=== PATIENT | female | born 1995 | race Two or more races ===

== ENCOUNTER 2024-04-23 00:53 | Emergency (ER) | payer MEDICAID, SELFPAY ==
[2024-04-23 00:53] VITALS: BMI 34.0
--- NOTE | 2024-04-23 01:20 | XR_ITS ---
Examination: Complete OB ultrasound, less than 14 weeks, transabdominal Date and time of exam: April 23, 2024 0248 hours INDICATIONS: Pelvic cramping beginning one week ago Technique: Obstetrical ultrasound images less than 14 weeks performed via transabdominal imaging Findings: A normal shaped single intrauterine gestation is present in the uterus. pole 4.45 cm corresponds to 11 weeks 2 days gestational age Cardiac motion 178 BPM Ultrasonographic survey of visible and placental structures unremarkable. Amniotic fluid volume appears appropriate for this estimated gestational age. Right ovary obscured by bowel gas Left ovary 2.9 x 1.6 x 2.1 cm arterial flow IMPRESSION: Viable intrauterine gestation 11 weeks 2 days.
[2024-04-23 01:22] VITALS: BP 121/77; PULSE 90; RESP 18; TEMP 36.8; O2SAT 98
[2024-04-23 01:54] LABS: Collection Type, Urine Clean Catch
[2024-04-23 02:01] LABS: Basophils % (Auto) 1 % (0-2.5); Eosinophils # (Auto) 0.1 Thou/mm3 (0.0-0.5); Eosinophils % (Auto) 1 % (0-10); Hematocrit 36.7 % (36.0-46.0); Hemoglobin 13.1 g/dL (12.0-16.0); Immature Granulocytes % (Auto) 0 % (0-0); Immature Granulocytes Auto 0.02 Thou/mm3 (0.00-0.00); Lymphocytes # (Auto) 2.4 Thou/mm3 (1.0-4.8); Lymphocytes % (Auto) 30 % (10-50); Mean Corpuscular HGB Conc 35.7 g/dl (31.0-37.0); Mean Corpuscular Hemoglobin 29.8 pg (25.0-35.0); Mean Corpuscular Volume 84 fL (80-100); Monocytes # (Auto) 0.7 Thou/mm3 (0.0-0.8); Monocytes % (Auto) 8 % (0-12); Neutrophils # (Auto) 4.9 Thou/mm3 (1.8-7.7); Neutrophils % (Auto) 61 % (37-80); Nucleated Red Blood Cell % 0 /100 WBC (0); Platelet Count 308 Thou/mm3 (140-440); RDW Standard Deviation 37.2 fL (36.4-46.3); Red Blood Count 4.39 Miln/mm3 (4.00-5.20)
[2024-04-23 02:09] LABS: Bacteria,Urine 1+; Bilirubin,Urine Negative (Negative); Blood,Urine 1+ (Negative); Clarity,Urine Clear (Clear/Hazy); Color,Urine Lt-Yellow (Lt Yel-Yel); Glucose, Urine Negative (Negative); Ketones,Urine Negative (Negative); Leukocyte Esterase,Urine Positive (Negative); Nitrite,Urine Negative (Negative); PH,Urine 6.5 (5.0-7.0); Protein,Urine Negative (Neg - Trace); RBC,Urine 3 /hpf (0-3); Specific Gravity,Urine 1.015 (1.001-1.035); Squamous Epithelial Cell,Urine 4 /hpf (0-5); Urobilinogen,Urine Negative mg/dL (0.0-1.0); WBC,Urine 4 /hpf (0-5)
[2024-04-23 02:24] LABS: Alanine Aminotransferase 15 U/L (10-49); Albumin, Serum 4.3 gm/dL (3.5-5.0); Albumin/Globulin Ratio 1.7 (1.2-2.2); Alkaline Phosphatase 47 U/L (46-116); Anion Gap 7 (7-16); Aspartate Amino Transferase 18 U/L (0-34); BUN/Creatinine Ratio 14 Ratio (12-20); Bilirubin,Total 0.3 mg/dL (0.3-1.2); Blood Urea Nitrogen 7 mg/dL (9-23); Calcium 10.1 mg/dL (8.3-10.6); Calcium (Corrected) 10.1 mg/dL (8.5-10.1); Carbon Dioxide 24.7 mMol/L (20.0-31.0); Chloride 105 mMol/L (98-107); Creatinine (Component) 0.5 mg/dL (0.6-1.3); Estimated Creatinine Clearance 165.1 mL/min (>60); Globulin 2.6 gm/dL (2.3-3.5); Glucose 93 mg/dL (74-106); Magnesium 1.8 mg/dL (1.6-2.6); Osmolality,Calculated 271 (275-295); Potassium 4.1 mMol/L (3.4-5.1); Sodium 137 mMol/L (136-145); Total Protein 6.9 gm/dL (5.7-8.2); eGFR > 60 See Note
[2024-04-23 02:31] LABS: Culture Indicated,Urine Yes
--- NOTE | 2024-04-23 03:07 | PD.EDPREG ---
ED OB Contraction Preg RMI/HPI General Chief complaint: Abdominal Pain Stated complaint: LOWER ABD PAIN Time Seen by Provider: 04/23/24 01:00 Arrival date/time: 04/23/24 00:53 RME / HPI RME / HPI Narrative: This section includes all my notes and documentations, including HPI, PE, and ED course. Jacob Bowers MD HPI: 28-year-old female here to be evaluated with pelvic pain for the past few hours. She is currently , in first trimester. Has been battling with nausea entire . No vaginal bleeding or spotting. No other complaints. ROS: All negative except as documented in HPI. Physical Exam: General: Alert and oriented. No acute distress when remaining still. Eyes: Conjunctivae and lids clear. ENT: No nasal congestion. Neck: Supple. Heart: RRR. Lungs: No respiratory distress. Good air movement. No rhonchi, wheezing, rales. Abdomen: Soft and nontender. Normal bowel sounds. No distension. No rebound or guarding. Back: No CVA tenderness. Skin: Warm and dry. Neuro: Alert and oriented X 3. I reviewed all diagnostic test results. My review of the OB ultrasound report is IUP. Blood tests and urine tests unremarkable. At this point, diagnoses include threatened AB. Recommended expectant management. Based on my best medical judgment, made decision no further evaluation or treatment indicated at this time. Patient understands and agrees to the discharge instructions customized and printed, see below. Discharge Instructions from Dr. Bowers: 1.? ? ? After evaluation, your baby is alive and doing well. 2.? ? ? Today, your GA is 11 2/7 weeks based on the ultrasound. 3.? ? ? Only time will determine whether you will have a successful or you will have a miscarriage.? If your symptoms stop, you can have a successful .? If your symptoms worsen with heavy vaginal bleeding, you may have a miscarriage.? If you have a miscarriage, unfortunately we won?t be able to save the baby because it?s too early.? Under 20 weeks, unfortunately we can?t help.?? 4.? ? ? See your OB doctor on 04/27/2024 for recheck as scheduled.? No sexual activity until cleared by a doctor taking care of you.?? Ask to review all test results and official radiology reports, to make sure you receive all necessary follow-ups and monitoring. 5.? ? ? Seek immediate medical care for severe bleeding (soaking more than 3 pads per hour), intolerable pain, or with any concerns.? Jacob Bowers MD Related Data Previous Rx's ?Medication ?Instructions ?Recorded ibuprofen 400 mg tablet 400 mg PO [id number] PRN PAIN ##30 12/15/12 ibuprofen 800 mg tablet 800 mg PO TID PRN pain #30 tabs 03/05/23 Allergies Allergy/AdvReac Type Severity Reaction Status Date / Time No Known Allergies Allergy Verified 03/05/23 15:50 Course Quality Measures none Orders Category Date Time Status US OB <= 14 weeks fetus Stat Exams 04/23/24 01:20 Taken Beta HCG,Quantitative Stat Lab 04/23/24 01:43 Completed CBC Stat Lab 04/23/24 01:43 Completed CMP [Comprehensive Metabolic Panel] Stat Lab 04/23/24 01:43 Completed Magnesium Stat Lab 04/23/24 01:43 Completed Rh Testing Only Stat Lab 04/23/24 01:43 Received UA, C/S IF [Urinalysis, C/S if Indicated] Stat Lab 04/23/24 01:20 Completed Urine Culture Stat Lab 04/23/24 01:20 Received Vital Signs Vital signs: Vital Signs Temperature 98.2 F 04/23/24 01:22 Pulse Rate 90 04/23/24 01:22 Respiratory Rate 18 04/23/24 01:22 Blood Pressure 121/77 04/23/24 01:22 Pulse Oximetry (%) 98 04/23/24 01:22 Oxygen Delivery Method Room Air 04/23/24 01:22 OB/Uterine Contractions Patient data External records reviewed:: None Clinical information provided by:: patient Social determinants that could affect healthcare access:: none Patient has the following chronic illnesses:: None How is presenting disease/condition affected by chronic disease/condition?: no chronic disease Evaluation data The following diagnostics were reviewed and interpreted by me:: lab results and radiology exam(s) Lab and/or radiology exams considered but not ordered:: None Interpretation Summary: Threatened miscarriage Medications / Prescriptions Medications or Prescriptions considered but not ordered:: None Medication administrations:: None Consultations Consultation(s) initiated? (list below): No Diagnosis OB Contractions Differential Diagnosis: other (Incomplete AB, complete AB, threatened AB, ectopic, IUP) Most likely diagnosis given after review of the tests above:: Threatened AB Admission Indicated Admission indicated?: not indicated Explain why admission is indicated or not indicated:: Admission criteria not met Admission Request Was there a request for admission?: No Disposition Plan Disposition Plan: Discharge Discharge Attestation Discharge Attestation: The patient and all family members were given an opportunity to ask questions and understood the discharge instructions. Discharge instructions specifically effects, indications for sooner follow up or return to the emergency department, and the expected course of current diagnosis. Patient condition: Stable Discharge Plan Plan Patient Disposition: HOME (Self Care) Prescriptions/Referrals Prescriptions/Med Rec: No Action ibuprofen 400 MG tablet 400 mg PO [id number] PRN (Reason: PAIN) Qty: 30 0RF ibuprofen 800 mg tablet 800 mg PO TID PRN (Reason: pain) Qty: 30 0RF Problem List Clinical Impression: Threatened miscarriage Patient/Caregiver Discharge Instructions Discharge Activity: activity as tolerated Education Materials: ED Possible Miscarriage ... Additional Instructions: Discharge Instructions from Dr. Bowers: 1.? ? ? After evaluation, your baby is alive and doing well. 2.? ? ? Today, your GA is 11 2/7 weeks based on the ultrasound. 3.? ? ? Only time will determine whether you will have a successful or you will have a miscarriage.? If your symptoms stop, you can have a successful .? If your symptoms worsen with heavy vaginal bleeding, you may have a miscarriage.? If you have a miscarriage, unfortunately we won?t be able to save the baby because it?s too early.? Under 20 weeks, unfortunately we can?t help.?? 4.? ? ? See your OB doctor on 04/27/2024 for recheck as scheduled.? No sexual activity until cleared by a doctor taking care of you.?? Ask to review all test results and official radiology reports, to make sure you receive all necessary follow-ups and monitoring. 5.? ? ? Seek immediate medical care for severe bleeding (soaking more than 3 pads per hour), intolerable pain, or with any concerns.? Print Language: [place] Stand Alone Forms: Alina Award Info., Patient Portal Info Letter
[2024-04-23 03:09] LABS: Beta HCG,Quantitative 121146 mIU/mL (<5.0)
[2024-04-23 03:14] VITALS: RESP 18
== END 2024-04-23 03:14 | disposition home or self-care (01) ==
LOC: SERX 04:21
PROVIDERS: Emergency Provider Emergency Medicine; PCP Family Medicine
DX: O20.0 Threatened abortion (principal); Z3A.00 Weeks of gestation of pregnancy not specified
CPT/HCPCS: 36415; 76801; 80053; 81001; 83735; 84702; 85025; 86901; 87086; 99284

== ENCOUNTER 2024-08-25 09:52 | Outpatient (AMB) | payer MEDICAID, SELFPAY ==
--- NOTE | 2024-08-25 09:56 | AMB.OBINITIA ---
Vital Signs 08/25/24 10:13 Height 1.55 m Height Method Stated Weight 90.378 kg Weight Measurement Method Standing Scale BMI 37.6 BP 126/80 Blood Pressure Source Automatic Cuff Blood Pressure Location Right Upper Arm Position Sitting Respiration 18 Pulse 95 Pulse Source Monitor Temp 97.5 F Temp Source Temporal Artery Scan Pulse Oximetry (%) 98 Oxygen Delivery Method Room Air Allergies/Home Meds Allergies & Medications Allergies No Known Allergies Allergy (Verified 08/25/24 10:03) Medication Reconciliation vits no.126-ferrous fum 28 mg iron-folic acid 800 mcg tablet (Classic ) tab PO 08/25/24 [History Confirmed 08/25/24] Intake Visit Data Collection New Patient or Established: Established Patient (seen at [facility] within 3 years) Reason for Visit:: transffer obi Do You Feel Safe at Home: Yes Authorities Contacted: N/A PCP or OBGYN visit in last 3 months: Yes Last menstrual period: 02/02/24 Pain Present Currently: Yes Smoking Status Smoking Status: 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 Questionnaires Covid-19 Vaccine Questionnaire Has patient been vacinated for Covid-19 Have you been vacinated for Covid-19: Yes PHQ-9 PHQ-2 Over the last 2 weeks, how often have you been bothered by any of the following problems? 1. Little interest or pleasure in doing things: not at all 2. Feeling down, depressed, or hopeless: not at all Total score: 0 Depression screen completed yes Social History Living Situation History Marital Status: Lives With: Spouse Housing: House Tobacco History Smoking Status: 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 Alcohol History Alcohol Intake: Never Domestic Abuse History Do You Feel Safe at Home: Yes Past Medical History Past Medical History Have you ever been diagnosed with any of the following: Cardiology Problems Congestive Heart Failure: No Respiratory Problems Chronic Obstructive Pulmonary Disease (COPD): No Genital/Urinary Problems Renal Disease: No Musculoskeletal Problems Fractures: Yes Endocrine Problems Diabetes Mellitus Type 1: No Diabetes Mellitus Type 2: No History of Present Illness HPI Narrative 28-year-old 3 para 0 for first visit to [facility] OB clinic. Patient has been followed with Dr. Baltazar over [facility]. Last period February 01, 2025. Estimated due date was November 08, 2024. Patient reports sure dates. She reports that all her labs and 1 are up-to-date. Declined to Tdap today. She says that she has not had any problems with this so far. Her last Pap 2020. Needs Pap patient needs a Pap . Reports movement. Denies any contractions. Reports good movement. No records are in the chart. OB Initial Visit OB Flowsheet OB Flowsheet Initial Weight: Not Recorded Date <del>?</del> EGA Weight Edema CTX Effacement BP Fundal ht Pres Dilation Effacement Station Visit Note Alb Glu FHR Mov 08/25/24 <del>?</del> 29w 2d 90.378 kg absent absent 126/80 29 28-year-old 3 para 0 for first visit at [facility] OB clinic. Patient was a transfer from [facility] no records. She states that her due date is November 08, 2024. Reports good movement. She reports that this has been complicated. And her labs were done and she last did her 1 hour Glucola that was normal per patient. She is taking vitamins denies any signs of labor. And reports good movement. Plan today is to schedule an MF anatomy scan [facility]. Continue prenatals and vitamin D and iron and discussed labor precautions and diet and weight with patient. Return in 3 weeks OB check 28-year-old 3 para 0 for first visit at [facility] OB clinic. Patient was a transfer from [facility] no records. She states that her due date is November 08, 2024. Reports good movement. She reports that this has been uncomplicated. And her labs were done and she last did her 1 hour Glucola that was normal per patient. She is taking vitamins denies any signs of labor. And reports good movement. Plan today is to schedule an MF anatomy scan [facility]. Continue prenatals and vitamin D and iron and discussed labor precautions and diet and weight with patient. Return in 3 weeks OB check 28-year-old 3 para 0 for first visit at [facility] OB clinic. Patient was a transfer from [facility] no records. She states that her due date is November 08, 2024. Reports good movement. She reports that this has been uncomplicated. And her labs were done and she last did her 1 hour Glucola that was normal per patient. She is taking vitamins denies any signs of labor. And reports good movement. Plan today is to schedule an MFM anatomy scan [facility]. Continue prenatals and vitamin D and iron and discussed labor precautions and diet and weight with patient. Return in 3 weeks OB check. decline TDAP 160 active Menstrual History Menstrual reliability: approximate (month known) Flow: normal Menstrual regularity: regular Monthly: Yes Age at menarche: 11 On control pills at conception: Yes Date of positive home test: 03/09/24 OB History : 3 Para: 0 Hx Total # of Abortions (Spontaneous & Elective): 2 Infection History & Risk Evaluation History of STDs: none HIV risk evaluation: low risk Hepatitis B risk evaluation: low risk Patient or partner has history of Genital Herpes: No Varicella/chicken pox status: immunized Genetic Screening & History Genetic Screening/Teratology Counseling - Includes patient, baby's father, or anyone in either family with: 1. Patient's age 35 years or older as of estimated date of delivery: No 2. Thalassemia (Uzbek, Romanian, Mediterranean, or Background); MCV less than 80: No 3. Neural Tube Defect (Meningomyelocele, Spina Bifida, or Anencephaly): No 4. Congenital Heart Defect: No 5. Down Syndrome: No 6. Jd-Sachs (Ashkenazi Buddhist, Cajun, Croatian Nigerian): No 7. Lois Disease (Ashkenazi Buddhist): No 8. Familial Dysautonomia (Ashkenazi Buddhist): No 9. Sickle Cell Disease or Trait (): No 10. Hemophilia or other blood disorders: No 11. Muscular Dystrophy: No 12. Cystic Fibrosis: No 13. [place]'s Chorea: No 14. Mental Retardation/Autism: No 15. Other inherited genetic or chromosomal disorder: No 16. Maternal Metabolic Disorder (EG,TYPE 1 Diabetes, PKU): No 17. Patient or baby's father had a child with defects not listed above: No 18. Recurrent loss or a stillbirth: No 19. Medications (including supplements, vitamins, herbs or otc drugs)/illicit/recreational drugs/alcohol since last menstrual period: No 20. Any other: No Infection History 1. Live with someone with TB or exposed to TB: No 2. Rash or viral illness since last menstrual period: No 3. Hepatitis B,C: No Other (see comments) Source: [employer] [place] [employer] Review of Systems Review of Systems Systems Reviewed: All systems reviewed, normal except as documented Exam Narrative Physical exam: FH:29, fht 160 General Limitations: no limitations General Appearance: alert, in no apparent distress, comfortable, cooperative, healthy appearing, well developed and well groomed Head Head exam: atraumatic, normocephalic and normal inspection Resp Respiratory exam: Present normal lung sounds bilaterally Card Cardiovascular exam: Present regular rate, normal rhythm and normal heart sounds Abdominal Abdominal exam: Present soft and normal bowel sounds Psych Psychiatric exam: Present normal affect and normal mood Assessment & Plan Diagnosis / Problem List (1) Encounter for supervision of normal in multigravida in third trimester: Status: Acute Plan Medical release from [facility] for OB records, schedule MFM anatomy scan, declined TDAP, ptl precaution, discuss diet and weight. 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
[2024-08-25 10:13] VITALS: BP 126/80; PULSE 95; RESP 18; TEMP 36.4; O2SAT 98; BMI 37.6
== END 2024-08-25 10:36 | disposition home or self-care (01) ==
LOC: HODSOBC 09:52
PROVIDERS: PCP Advanced Practice Midwife; Referring Provider Advanced Practice Midwife; Supervising Provider Advanced Practice Midwife; Visit Provider Advanced Practice Midwife
DX: Z34.83 Encounter for supervision of other normal pregnancy, third trimester (principal); Z3A.29 29 weeks gestation of pregnancy; Z28.21 Immunization not carried out because of patient refusal
CPT/HCPCS: 99204; G0463

== ENCOUNTER 2024-09-15 11:02 | Outpatient (AMB) | payer MEDICAID, SELFPAY ==
[2024-09-15 11:18] VITALS: BP 127/81; PULSE 92; RESP 18; TEMP 35.7; O2SAT 98; BMI 38.5
--- NOTE | 2024-09-15 11:18 | OBCLNT_ITS ---
Vital Signs 09/15/24 11:18 Height 1.55 m Height Method Stated Weight 92.646 kg Weight Measurement Method Standing Scale BMI 38.5 BP 127/81 Blood Pressure Source Automatic Cuff Blood Pressure Location Left Upper Arm Position Sitting Respiration 18 Pulse 92 Pulse Source Monitor Temp 96.2 F L Temp Source Oral Pulse Oximetry (%) 98 Oxygen Delivery Method Room Air Allergies/Home Meds Allergies & Medications Allergies No Known Allergies Allergy (Verified 09/15/24 11:19) Medication Reconciliation vits no.126-ferrous fum 28 mg iron-folic acid 800 mcg tablet (Classic ) tab PO 08/25/24 [History Confirmed 09/15/24] Intake Visit Data Collection New Patient or Established: Established Patient (seen at [facility] within 3 years) Reason for Visit:: OBC Seen by Clinical Staff ONLY (RN/MA): No Cable Cutter And Swager Required: No Do You Feel Safe at Home: Yes Authorities Contacted: N/A PCP or OBGYN visit in last 3 months: Yes Date of Last PCP or OBGYN visit: 08/25/24 Hx Now: Yes Are you currently on any form of Control: No Pain Present Currently: No Pain Scale Used: Long-Villanueva/Numerical Pain scale:: 0 Smoking Status Smoking Status: 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 Questionnaires Covid-19 Vaccine Questionnaire Has patient been vacinated for Covid-19 Have you been vacinated for Covid-19: Yes PHQ-9 PHQ-2 Over the last 2 weeks, how often have you been bothered by any of the following problems? 1. Little interest or pleasure in doing things: not at all 2. Feeling down, depressed, or hopeless: not at all Total score: 0 PHQ-9 3. Trouble falling or staying asleep, or sleeping too much: Not at all 4. Feeling tired or having little energy: Not at all 5. Poor appetite or overeating: Not at all 6. Feeling bad about yourself - or that you are a failure or have let yourself or your family down: Not at all 7. Trouble concentrating on things, such as reading the newspaper or watching television: Not at all 8. Moving or speaking so slowly that other people could have noticed? - Or the opposite - being so fidgety or restless that you have been moving around a lot more than usual: not at all 9. Thoughts that you would be better off or of hurting yourself in some way: Not at all Total score: 0 If you checked off any problems, how difficult have these problems made it for you to do your work, take care of things at home, or get along with other people?: not difficult at all Source: Developed by Drs. Rashaad Taylor, Angeles Frederick, Isreal Hoff and colleagues, with an educational mariama from [employer]. 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 Patient was a transfer from [facility] no records. She states that her due date is November 08, 2024. Reports good movement. She reports that this has been complicated. And her labs were done and she last did her 1 hour Glucola that was normal per patient. She is taking vitamins denies any signs of labor. And reports good movement. Plan today is to schedule an MFM anatomy scan [facility]. Continue prenatals and vitamin D and iron and discussed labor precautions and diet and weight with patient. Return in 3 weeks OB check 28-year-old 3 para 0 for first visit at [facility] OB clinic. Patient was a transfer from [facility] no records. She states that her due date is November 08, 2024. Reports good movement. She reports that this has been uncomplicated. And her labs were done and she last did her 1 hour Glucola that was normal per patient. She is taking vitamins denies any signs of labor. And reports good movement. Plan today is to schedule an MFM anatomy scan [facility]. Continue prenatals and vitamin D and iron and discussed labor precautions and diet and weight with patient. Return in 3 weeks OB check 28-year-old 3 para 0 for first visit at [facility] OB clinic. Patient was a transfer from [facility] no records. She states that her due date is November 08, 2024. Reports good movement. She reports that this has been uncomplicated. And her labs were done and she last did her 1 hour Glucola that was normal per patient. She is taking vitamins denies any signs of labor. And reports good movement. Plan today is to schedule an MFM anatomy scan [facility]. Continue prenatals and vitamin D and iron and discussed labor precautions and diet and weight with patient. Return in 3 weeks OB check. decline TDAP 09/15/24 -?-?-?-?-?-?-?-?-?-?-?-?- 33w 0d 92.646 kg 127/81 absent cephalic 33 135 active fetus active. no PTL complaints. no Leaking,or bleeding. fetus active. MFM pending discuss FKC BID, ptl precaution, increase fluid. f/u on mfm appointment. continue PNV, discuss diet and weight. rtc 2 week OBC KATHARINA Calculator Estimated Delivery Date Method Current WG Current Estimate 11/03/24 Ultrasound #1 33w 0d Other Estimates 11/08/24 LMP (Certain) 32w 2d Notes Visit Date: 09/15/24 Last Updated by: Ingris Vasquez CNM 28 yo , lmp 02/01/25. edc 11/08/24. transfer of car from Dr haynes. gtt: 115, hbsag:neg, HIV-,HC-, A1c: 5.0, gc/ct-,A+,abs- Office Procedures OB Clinic LOC & Office Proc's Nursing/Assessment Patient Status: Established Patient OB Clinic Nursing Assessment: Medication Reconciliation and Vital Signs OB Clinic Coordination of Care: Education Complex Pt/Fam, Consent,records obtained, informed consent, Lab and Imaging orders and Staff clarify orders Special Needs: Heart tones Established Patient Charge Established Patient Point Assignment: 100 Established Patient Point Charge: EP Level 3 (80-115) Assessment & Plan Diagnosis / Problem List (1) Encounter for supervision of normal in multigravida in third trimester: Status: Acute Plan f/u on mfm referral. discuss diet and exercise, discuss PTL precaution, fkc bid, hydrate. rtc 2 week Additional Plan Follow Up: 2 Weeks (obc)
== END 2024-09-15 11:34 | disposition home or self-care (01) ==
LOC: HODSOBC 11:02
PROVIDERS: PCP Advanced Practice Midwife; Referring Provider Advanced Practice Midwife; Supervising Provider Advanced Practice Midwife; Visit Provider Advanced Practice Midwife
DX: Z34.83 Encounter for supervision of other normal pregnancy, third trimester (principal); Z3A.33 33 weeks gestation of pregnancy
CPT/HCPCS: 99213; G0463

== ENCOUNTER 2024-09-19 01:15 | Observation (INO) | payer MEDICAID, SELFPAY ==
[2024-09-19] VITALS (9 sets, daily range): BP systolic 128; BP diastolic 81; PULSE 81–102; RESP 16–99; TEMP 36.9; O2SAT 98–100; BMI 37.6
== END 2024-09-19 02:18 | disposition home or self-care (01) ==
PROVIDERS: Admitting Provider Specialist; Visit Provider Specialist
DX: O9A.213 Injury, poisoning and certain other consequences of external causes complicating pregnancy, third trimester (principal); S39.91XA Unspecified injury of abdomen, initial encounter; Z3A.32 32 weeks gestation of pregnancy; W21.09XA Struck by other hit or thrown ball, initial encounter
CPT/HCPCS: 59025; 59899; G0378

== ENCOUNTER 2024-09-29 10:03 | Outpatient (AMB) | payer MEDICAID, SELFPAY ==
--- NOTE | 2024-09-29 10:20 | OBCLNT_ITS ---
Vital Signs 09/29/24 10:21 Height 1.57 m Height Method Stated Weight 92.533 kg Weight Measurement Method Standing Scale BMI 37.3 BP 129/84 Blood Pressure Source Automatic Cuff Blood Pressure Location Right Upper Arm Position Sitting Respiration 17 Pulse 82 Pulse Source Monitor Temp 97.6 F Temp Source Temporal Artery Scan Pulse Oximetry (%) 97 Oxygen Delivery Method Room Air Allergies/Home Meds Allergies & Medications Allergies No Known Allergies Allergy (Verified 09/29/24 10:22) Medication Reconciliation vits no.126-ferrous fum 28 mg iron-folic acid 800 mcg tablet (Classic ) 1 tab PO QDAY 08/25/24 [History Confirmed 09/29/24] cholecalciferol (vitamin D3) 50 mcg (2,000 unit) tablet 50 mcg PO QDAY 09/19/24 [History Confirmed 09/29/24] ferrous sulfate 325 mg (65 mg iron) tablet (FeroSul) 325 mg PO QDAY 09/19/24 [History Confirmed 09/29/24] Intake Visit Data Collection New Patient or Established: Established Patient (seen at [facility] within 3 years) Reason for Visit:: OBC Seen by Clinical Staff ONLY (RN/MA): No 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 1. Little interest or pleasure in doing things: not at all 2. Feeling down, depressed, or hopeless: not at all Total score: 0 PHQ-9 3. Trouble falling or staying asleep, or sleeping too much: Not at all 4. Feeling tired or having little energy: Not at all 5. Poor appetite or overeating: Not at all 6. Feeling bad about yourself - or that you are a failure or have let yourself or your family down: Not at all 7. Trouble concentrating on things, such as reading the newspaper or watching television: Not at all 8. Moving or speaking so slowly that other people could have noticed? - Or the opposite - being so fidgety or restless that you have been moving around a lot more than usual: not at all 9. Thoughts that you would be better off or of hurting yourself in some way: Not at all Total score: 0 If you checked off any problems, how difficult have these problems made it for you to do your work, take care of things at home, or get along with other people?: not difficult at all Source: Developed by Drs. Rashaad Taylor, Angeles Frederick, Isreal Hoff and colleagues, with an educational mariama from [employer]. 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 OB clinic. Patient was a transfer from [facility] no records. She states that her due date is November 08, 2024. Reports good movement. She reports that this has been complicated. And her labs were done and she last did her 1 hour Glucola that was normal per patient. She is taking vitamins denies any signs of labor. And reports good movement. Plan today is to schedule an M anatomy scan [facility]. Continue prenatals and vitamin D and iron and discussed labor precautions and diet and weight with patient. Return in 3 weeks OB check 28-year-old 3 para 0 for first visit at [facility] OB clinic. Patient was a transfer from [facility] no records. She states that her due date is November 08, 2024. Reports good movement. She reports that this has been uncomplicated. And her labs were done and she last did her 1 hour Glucola that was normal per patient. She is taking vitamins denies any signs of labor. And reports good movement. Plan today is to schedule an MFM anatomy scan [facility]. Continue prenatals and vitamin D and iron and discussed labor precautions and diet and weight with patient. Return in 3 weeks OB check 28-year-old 3 para 0 for first visit at [facility] OB clinic. Patient was a transfer from [facility] no records. She states that her due date is November 08, 2024. Reports good movement. She reports that this has been uncomplicated. And her labs were done and she last did her 1 hour Glucola that was normal per patient. She is taking vitamins denies any signs of labor. And reports good movement. Plan today is to schedule an MFM anatomy scan [facility]. Continue prenatals and vitamin D and iron and discussed labor precautions and diet and weight with patient. Return in 3 weeks OB check. decline TDAP 09/15/24 -?-?-?-?-?-?-?-?-?-?-?-?- 32w 2d 92.646 kg 127/81 absent cephalic 33 135 active fetus active. no PTL complaints. no Leaking,or bleeding. fetus active. MFM pending discuss FKC BID, ptl precaution, increase fluid. f/u on mfm appointment. continue PNV, discuss diet and weight. rtc 2 week OBC 09/29/24 -?-?-?-?-?-?-?-?-?-?-?-?- 34w 2d 92.533 kg 129/84 absent cephalic 34 134 active fetus active, denies VB,LOF and PTL complaints, fetus active per pt PTL precaution reviewed, discuss FKC. continue PNV, hydrate, f/u mfm KATHARINA Calculator Estimated Delivery Date Method Current WG Current Estimate 11/08/24 LMP (Certain) 34w 2d Other Estimates 11/03/24 Ultrasound #1 35w 0d Notes Visit Date: 09/29/24 Last Updated by: Ingris Vaqsuez CNM 1 hr gtt wnl Visit Date: 09/15/24 Last Updated by: Ingris Vasquez CNM 28 yo , lmp 02/01/25. edc 11/08/24. transfer of car from Dr haynes. gtt: 115, hbsag:neg, HIV-,HC-, A1c: 5.0, gc/ct-,A+,abs- Office Procedures OB Clinic LOC & Office Proc's Nursing/Assessment Patient Status: Established Patient OB Clinic Nursing Assessment: Medication Reconciliation, Update PMH in EMR and Vital Signs OB Clinic Coordination of Care: Complex Care and Chronic Disease 1-5, Consent,records obtained, informed consent, Education Simp Pt/Fam, Lab and Imaging orders and Staff clarify orders Special Needs: Heart tones Established Patient Charge Established Patient Point Assignment: 130 Established Patient Point Charge: EP Level 4 (120-155) Assessment & Plan Diagnosis / Problem List (1) Encounter for supervision of normal in multigravida in third trimester: Status: Acute Plan discuss labor precaution, discuss fkc bid. GBS NV, hydrate. continue PNV. rtc 1 week OBC Additional Plan Follow Up: 2 Weeks (obc)
[2024-09-29 10:21] VITALS: BP 129/84; PULSE 82; RESP 17; TEMP 36.4; O2SAT 97; BMI 37.3
== END 2024-09-29 11:08 | disposition home or self-care (01) ==
LOC: HODSOBC 10:03
PROVIDERS: PCP Advanced Practice Midwife; Referring Provider Advanced Practice Midwife; Supervising Provider Advanced Practice Midwife; Visit Provider Advanced Practice Midwife
DX: Z34.83 Encounter for supervision of other normal pregnancy, third trimester (principal); Z3A.34 34 weeks gestation of pregnancy
CPT/HCPCS: 99214; G0463

== ENCOUNTER 2024-10-13 08:37 | Outpatient (AMB) | payer MEDICAID, SELFPAY ==
[2024-10-13 09:10] VITALS: BP 119/81; PULSE 80; RESP 17; TEMP 36.4; O2SAT 98; BMI 39.0
--- NOTE | 2024-10-13 09:10 | OBCLNT_ITS ---
Vital Signs 10/13/24 09:10 Height 1.57 m Height Method Stated Weight 96.275 kg Weight Measurement Method Standing Scale BMI 39.0 BP 119/81 Blood Pressure Source Automatic Cuff Blood Pressure Location Right Upper Arm Position Sitting Respiration 17 Pulse 80 Pulse Source Monitor Temp 97.5 F Temp Source Temporal Artery Scan Pulse Oximetry (%) 98 Oxygen Delivery Method Room Air Allergies/Home Meds Allergies & Medications Allergies No Known Allergies Allergy (Verified 10/13/24 09:11) Medication Reconciliation vits no.126-ferrous fum 28 mg iron-folic acid 800 mcg tablet (Classic ) 1 tab PO QDAY 08/25/24 [History Confirmed 10/13/24] cholecalciferol (vitamin D3) 50 mcg (2,000 unit) tablet 50 mcg PO QDAY 09/19/24 [History Confirmed 10/13/24] ferrous sulfate 325 mg (65 mg iron) tablet (FeroSul) 325 mg PO QDAY 09/19/24 [History Confirmed 10/13/24] Intake Visit Data Collection New Patient or Established: Established Patient (seen at [facility] within 3 years) Reason for Visit:: OBC Seen by Clinical Staff ONLY (RN/MA): No 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 1. Little interest or pleasure in doing things: not at all 2. Feeling down, depressed, or hopeless: not at all Total score: 0 PHQ-9 3. Trouble falling or staying asleep, or sleeping too much: Not at all 4. Feeling tired or having little energy: Not at all 5. Poor appetite or overeating: Not at all 6. Feeling bad about yourself - or that you are a failure or have let yourself or your family down: Not at all 7. Trouble concentrating on things, such as reading the newspaper or watching television: Not at all 8. Moving or speaking so slowly that other people could have noticed? - Or the opposite - being so fidgety or restless that you have been moving around a lot more than usual: not at all 9. Thoughts that you would be better off or of hurting yourself in some way: Not at all Total score: 0 If you checked off any problems, how difficult have these problems made it for you to do your work, take care of things at home, or get along with other people?: not difficult at all Source: Developed by Drs. Rashaad Taylor, Angeles Frederick, Isreal Hoff and colleagues, with an educational mariama from [employer]. 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 Patient was a transfer from [facility] no records. She states that her due date is November 08, 2024. Reports good movement. She reports that this has been complicated. And her labs were done and she last did her 1 hour Glucola that was normal per patient. She is taking vitamins denies any signs of labor. And reports good movement. Plan today is to schedule an M anatomy scan [facility]. Continue prenatals and vitamin D and iron and discussed labor precautions and diet and weight with patient. Return in 3 weeks OB check 28-year-old 3 para 0 for first visit at [facility] OB clinic. Patient was a transfer from [facility] no records. She states that her due date is November 08, 2024. Reports good movement. She reports that this has been uncomplicated. And her labs were done and she last did her 1 hour Glucola that was normal per patient. She is taking vitamins denies any signs of labor. And reports good movement. Plan today is to schedule an MFM anatomy scan [facility]. Continue prenatals and vitamin D and iron and discussed labor precautions and diet and weight with patient. Return in 3 weeks OB check 28-year-old 3 para 0 for first visit at [facility] OB clinic. Patient was a transfer from [facility] no records. She states that her due date is November 08, 2024. Reports good movement. She reports that this has been uncomplicated. And her labs were done and she last did her 1 hour Glucola that was normal per patient. She is taking vitamins denies any signs of labor. And reports good movement. Plan today is to schedule an MFM anatomy scan [facility]. Continue prenatals and vitamin D and iron and discussed labor precautions and diet and weight with patient. Return in 3 weeks OB check. decline TDAP 09/15/24 -?-?-?-?-?-?-?-?-?-?-?-?- 32w 2d 92.646 kg 127/81 absent cephalic 33 135 active fetus active. no PTL complaints. no Leaking,or bleeding. fetus active. MFM pending discuss FKC BID, ptl precaution, increase fluid. f/u on mfm appointment. continue PNV, discuss diet and weight. rtc 2 week OBC 09/29/24 -?-?-?-?-?-?-?-?-?-?-?-?- 34w 2d 92.533 kg 129/84 absent cephalic 34 134 active fetus active, denies VB,LOF and PTL complaints, fetus active per pt PTL precaution reviewed, discuss FKC. continue PNV, hydrate, f/u mfm 10/06/2/5 10/13/24 -?-?-?-?-?-?-?-?-?-?-?-?- 36w 2d 96.275 kg 119/81 occasional cephalic 35 145 active fetus active, pressure and cramps, no leaking or bleeding GBS today, discuss labor precaution, fkc bid, discuss ER precaution,and PIH precaution. hydrate, rtc 1 week OBC KATHARINA Calculator Estimated Delivery Date Method Current WG Current Estimate 11/08/24 LMP (Certain) 36w 2d Other Estimates 11/03/24 Ultrasound #1 37w 0d Notes Visit Date: 09/29/24 Last Updated by: Ingris Vasquez CNM 1 hr gtt wnl Visit Date: 09/15/24 Last Updated by: Ingris Vasquez CNM 28 yo , lmp 02/01/25. edc 11/08/24. transfer of car from Dr haynes. gtt: 115, hbsag:neg, HIV-,HC-, A1c: 5.0, gc/ct-,A+,abs- Office Procedures OB Clinic LOC & Office Proc's Nursing/Assessment Patient Status: Established Patient OB Clinic Nursing Assessment: Medication Reconciliation, Update PMH in EMR and Vital Signs OB Clinic Coordination of Care: Complex Care and Chronic Disease 1-5, Consent,records obtained, informed consent, Education Simp Pt/Fam and Staff clarify orders Special Needs: Heart tones Established Patient Charge Established Patient Point Assignment: 115 Established Patient Point Charge: EP Level 3 (80-115) Assessment & Plan Diagnosis / Problem List (1) Encounter for supervision of normal in multigravida in third trimester: Status: Acute Plan GBS today, discuss FKC bid, discuss labor precaution and ER precaution, hydrate, comfort measure for swelling, PIH precaution rtc obc 1 week Additional Plan Follow Up: 1 Week (obc)
== END 2024-10-13 09:40 | disposition home or self-care (01) ==
LOC: HODSOBC 08:37
PROVIDERS: PCP Advanced Practice Midwife; Referring Provider Advanced Practice Midwife; Supervising Provider Advanced Practice Midwife; Visit Provider Advanced Practice Midwife
DX: Z34.83 Encounter for supervision of other normal pregnancy, third trimester (principal); Z3A.36 36 weeks gestation of pregnancy; Z36.85 Encounter for antenatal screening for Streptococcus B
CPT/HCPCS: 99213; G0463

== ENCOUNTER 2024-10-17 02:18 | Observation (INO) | payer MEDICAID, SELFPAY ==
[2024-10-17] VITALS (10 sets, daily range): BP systolic 129; BP diastolic 86; PULSE 83–95; RESP 17–99; TEMP 36.8; O2SAT 98–100; BMI 38.8
--- NOTE | 2024-10-17 10:35 | ESPR_ITS ---
Documentation for date of: 10/17/24 OB Labor Progress Note Pelvic Exam Dilation (cm): 0 station: -3 Amniotic membrane status: Intact Contractions Monitor mode: External Contraction frequency: 1-3 Contraction intensity: Mild Assessment and Plan Comments: Lamont a 29yo with SIUP at 36+wk presenting to L&D for lack of movement. She notes no ctx, no lof, no vaginal bleeding. Current : Transfer of care from Dr. Reece to GUILHERME Vasquez in [address] [place] [address] ROS negative other than what was described above. Vitals wnl, afebrile General: well developed, well nourished, no acute distress, conversant Cardiac: normal heart rate Lungs: breathing without distress Abdomen: soft, gravid, non-tender, no rebound or guarding NST: Reactive with 15x15 accels, no decels, mod autumn Assessment: Hortencia is a 29yo with SIUP at 36+wk with decreased mo vement prior to presentation. Vitals wnl, benign exam. Reassuring status based on NST. Patient began to feel robust movement in triage as well. Plan: -Patient was provided reassurance regarding findings -Continue routine follow up with GUILHERME Vasquez -Return precautions discussed to include [facility] Dr. Garcia
== END 2024-10-17 03:15 | disposition home or self-care (01) ==
PROVIDERS: Admitting Provider Obstetrics & Gynecology; Visit Provider Obstetrics & Gynecology
DX: O36.8130 Decreased fetal movements, third trimester, not applicable or unspecified (principal); Z3A.36 36 weeks gestation of pregnancy
CPT/HCPCS: 59025; 59899

== ENCOUNTER 2024-10-20 11:29 | Outpatient (AMB) | payer MEDICAID, SELFPAY ==
[2024-10-20 11:40] VITALS: BP 123/85; PULSE 75; RESP 18; TEMP 36.3; O2SAT 98
--- NOTE | 2024-10-20 11:40 | OBCLNT_ITS ---
Vital Signs 10/20/24 11:40 Weight 95.368 kg Weight Measurement Method Standing Scale BP 123/85 H Blood Pressure Source Automatic Cuff Blood Pressure Location Right Upper Arm Position Sitting Respiration 18 Pulse 75 Pulse Source Monitor Temp 97.3 F Temp Source Temporal Artery Scan Pulse Oximetry (%) 98 Oxygen Delivery Method Room Air Allergies/Home Meds Allergies & Medications Allergies No Known Allergies Allergy (Verified 10/20/24 11:41) Medication Reconciliation vits no.126-ferrous fum 28 mg iron-folic acid 800 mcg tablet (Classic ) 1 tab PO QDAY 08/25/24 [History Confirmed 10/20/24] cholecalciferol (vitamin D3) 50 mcg (2,000 unit) tablet 50 mcg PO QDAY 09/19/24 [History Confirmed 10/20/24] ferrous sulfate 325 mg (65 mg iron) tablet (FeroSul) 325 mg PO QDAY 09/19/24 [History Confirmed 10/20/24] Intake Visit Data Collection New Patient or Established: Established Patient (seen at [facility] within 3 years) Reason for Visit:: OBC Seen by Clinical Staff ONLY (RN/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 1. Little interest or pleasure in doing things: not at all 2. Feeling down, depressed, or hopeless: not at all Total score: 0 PHQ-9 3. Trouble falling or staying asleep, or sleeping too much: Not at all 4. Feeling tired or having little energy: Not at all 5. Poor appetite or overeating: Not at all 6. Feeling bad about yourself - or that you are a failure or have let yourself or your family down: Not at all 7. Trouble concentrating on things, such as reading the newspaper or watching television: Not at all 8. Moving or speaking so slowly that other people could have noticed? - Or the opposite - being so fidgety or restless that you have been moving around a lot more than usual: not at all 9. Thoughts that you would be better off or of hurting yourself in some way: Not at all Total score: 0 If you checked off any problems, how difficult have these problems made it for you to do your work, take care of things at home, or get along with other people?: not difficult at all Source: Developed by Drs. Rashaad Taylor, Angeles Frederick, Isreal Hoff and colleagues, with an educational mariama from [employer]. 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 Patient reports feeling cramps, like period cramps which were identified as [place] contractions. No leaking, no bleeding reported. Reports good movement. Denies BRICEÑO, VC, and epigastric pain. - Hortencia Weaver is a 29-year-old at 37 weeks and 2 days gestation presenting for routine care. - Estimated due date: 11/08/2024 - Recently seen at the hospital for a ruled-out labor check and discharged home - Reports experiencing cramps similar to period cramps - Informed these are likely [place] contractions - Denies leaking fluid or bleeding - Reports normal movement - Transferred care to Ingris Morejon in her 3rd trimester - Taking vitamins as prescribed Care OB Visit Log OB Flowsheet Initial Weight: Not Recorded Date -?-?-?-?-?-?-?-?-?-?-?-?- EGA Weight BP Alb Glu CTX Pres Fundal ht FHR Mov Dilation Station Effacement Hx Notes Visit Note 08/25/24 -?-?-?-?-?-?-?-?-?-?-?-?- 29w 2d 90.378 kg 126/80 absent 29 160 ac tive 28-year-old 3 para 0 for first visit at [facility] OB clinic. Patient was a transfer from [facility] no records. She states that her due date is November 08, 2024. Reports good movement. She reports that this has been complicated. And her labs were done and she last did her 1 hour Glucola that was normal per patient. She is taking vitamins denies any signs of labor. And reports good movement. Plan today is to schedule an [facility] anatomy scan [facility]. Continue prenatals and vitamin D and iron and discussed labor precautions and diet and weight with patient. Return in 3 weeks OB check 28-year-old 3 para 0 for first visit at [facility] OB clinic. Patient was a transfer from [facility] no records. She states that her due date is November 08, 2024. Reports good movement. She reports that this has been uncomplicated. And her labs were done and she last did her 1 hour Glucola that was normal per patient. She is taking vitamins denies any signs of labor. And reports good movement. Plan today is to schedule an [facility] anatomy scan [facility]. Continue prenatals and vitamin D and iron and discussed labor precautions and diet and weight with patient. Return in 3 weeks OB check 28-year-old 3 para 0 for first visit at [facility] OB clinic. Patient was a transfer from [facility] no records. She states that her due date is November 08, 2024. Reports good movement. She reports that this has been uncomplicated. And her labs were done and she last did her 1 hour Glucola that was normal per patient. She is taking vitamins denies any signs of labor. And reports good movement. Plan today is to schedule an M anatomy scan [facility]. Continue prenatals and vitamin D and iron and discussed labor precautions and diet and weight with patient. Return in 3 weeks OB check. decline TDAP 09/15/24 -?-?-?-?-?-?-?-?-?-?-?-?- 32w 2d 92.646 kg 127/81 absent cephalic 33 135 active fetus active. no PTL complaints. no Leaking,or bleeding. fetus active. MFM pending discuss FKC BID, ptl precaution, increase fluid. f/u on mfm appointment. continue PNV, discuss diet and weight. rtc 2 week OBC 09/29/24 -?-?-?-?-?-?-?-?-?-?-?-?- 34w 2d 92.533 kg 129/84 absent cephalic 34 134 active fetus active, denies VB,LOF and PTL complaints, fetus active per pt PTL precaution reviewed, discuss FKC. continue PNV, hydrate, f/u mfm 10/06//10/13/24 -?-?-?-?-?-?-?-?-?-?-?-?- 36w 2d 96.275 kg 119/81 occasional cephalic 35 145 active fetus active, pressure and cramps, no leaking or bleeding GBS today, discuss labor precaution, fkc bid, discuss ER precaution,and PIH precaution. hydrate, rtc 1 week OBC 10/20/24 -?-?-?-?-?-?-?-?-?-?-?-?- 37w 2d 95.368 kg 123/85 occasional cephalic 40 140 active Reports period- like cramps ([place]), no leaking or bleeding, good FM. Recently evaluated at hospital and discharged. vitamins continued Return visit with Dr. Ley next week, Ingris VANEGAS on November 03. Encourage daily 15?20 min walks, use exercise ball, monitor for labor. Await spontaneous labor; induce after 40 weeks if needed. KATHARINA Calculator Estimated Delivery Date Method Current WG Current Estimate 11/08/24 LMP (Certain) 37w 4d Other Estimates 11/03/24 Ultrasound #1 38w 2d Notes Visit Date: 09/29/24 Last Updated by: Ingris Vasquez CNM 1 hr gtt wnl Visit Date: 09/15/24 Last Updated by: Ingris Vasquez CNM 28 yo , lmp 02/01/25. edc 11/08/24. transfer of car from Dr haynes. gtt: 115, hbsag:neg, HIV-,HC-, A1c: 5.0, gc/ct-,A+,abs- Exam General General Appearance: alert, in no apparent distress and healthy appearing Head Head exam: atraumatic Neck Neck exam: Present normal inspection and trachea midline Chest Chest inspection: Present normal inspection and symmetric chest wall rise External exam: Present normal external exam; Absent tenderness Neuro Neurological exam: Present oriented X3 Psych Psychiatric exam: Present normal affect and normal mood Office Procedures OB Clinic LOC & Office Proc's Nursing/Assessment Patient Status: Established Patient OB Clinic Nursing Assessment: Medication Reconciliation, Update PMH in EMR and Vital Signs OB Clinic Coordination of Care: Education Complex Pt/Fam, Consent,records obtained, informed consent, Lab and Imaging orders and Staff clarify orders Special Needs: Heart tones Established Patient Charge Established Patient Point Assignment: 110 Established Patient Point Charge: EP Level 3 (80-115) Assessment & Plan Diagnosis / Problem List (1) size inconsistent with dates: Status: Acute (2) Encounter for supervision of normal in multigravida in third trim kraig: Status: Acute Plan Problem List - , 37 weeks and 2 days gestation - [place] contractions Assessment at 37 weeks and 2 days gestation with KATHARINA 11/08/2024 presenting for routine care. Patient reports experiencing [place] contractions described as period-like cramps. movement is reported as normal. No leaking or bleeding noted. Recent hospital visit for ruled-out labor check resulted in discharge home. Group B Streptococcus (GBS) screening was performed recently. heart rate auscultated at 163 bpm, which is within normal range. Plan - Schedule next appointment with Dr. Ley for next week - Schedule subsequent appointment with Ingris Morejon on November 03 - Continue vitamins - Recommend 15-20 minute daily walks - Suggest using an exercise ball for bouncing - Monitor for onset of labor; if any issues arise, patient to go to hospital - Await spontaneous labor onset until due date (40 weeks) - If labor does not begin spontaneously, schedule induction after due date 1. Progress Reviewed gestational age, growth, and heart rate. Planned frequent visits (every 2 weeks until 36 weeks, then weekly). 2. Instructed patient to monitor movements and report decreases immediately. 3. Testing Counseled on routine third-trimester labs per guidelines. Discussed potential need for ultrasound or monitoring based on risk factors. 4. Preeclampsia Precaution Educated on preeclampsia signs: severe headache, vision changes, right upper quadrant pain, sudden swelling. Advised urgent reporting of symptoms and discussed blood pressure monitoring if high risk. 5. Labor Precautions Reviewed labor signs: regular contractions, pelvic pressure, back pain, bleeding, or fluid leakage. Instructed to seek immediate care for these symptoms. 6. Lifestyle and Delivery Preparation Reinforced vitamins, nutrition, and safe activity. Discussed plan, pain management, and . Advised on labor preparation (e.g., hospital bag) and expectations. 7. Psychosocial Support Assessed emotional well-being and offered resources for mental health or parenting support.
== END 2024-10-20 11:53 | disposition home or self-care (01) ==
LOC: HODSOBC 11:29
PROVIDERS: PCP Advanced Practice Midwife; Referring Provider Advanced Practice Midwife; Supervising Provider Obstetrics & Gynecology; Visit Provider Obstetrics & Gynecology
DX: O09.893 Supervision of other high risk pregnancies, third trimester (principal); O26.843 Uterine size-date discrepancy, third trimester; O47.1 False labor at or after 37 completed weeks of gestation; Z3A.37 37 weeks gestation of pregnancy
CPT/HCPCS: 99213; G0463

== ENCOUNTER 2024-10-26 09:16 | Outpatient (AMB) | payer MEDICAID, SELFPAY ==
--- NOTE | 2024-10-26 09:22 | AMB.OBVISIT ---
Vital Signs 10/26/24 09:23 Height 1.57 m Height Method Stated Weight 96.615 kg Weight Measurement Method Standing Scale BMI 39.2 BP 134/87 H Blood Pressure Source Automatic Cuff Blood Pressure Location Right Upper Arm Position Sitting Respiration 17 Pulse 78 Pulse Source Monitor Temp 97.6 F Temp Source Temporal Artery Scan Pulse Oximetry (%) 98 Oxygen Delivery Method Room Air Allergies/Home Meds Allergies & Medications Allergies No Known Allergies Allergy (Verified 10/26/24 09:24) Medication Reconciliation vits no.126-ferrous fum 28 mg iron-folic acid 800 mcg tablet (Classic ) 1 tab PO QDAY 08/25/24 [History Confirmed 10/26/24] Intake Visit Data Collection New Patient or Established: Established Patient (seen at [facility] within 3 years) Reason for Visit:: OBC Seen by Clinical Staff ONLY (RN/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 1. Little interest or pleasure in doing things: not at all 2. Feeling down, depressed, or hopeless: not at all Total score: 0 PHQ-9 3. Trouble falling or staying asleep, or sleeping too much: Not at all 4. Feeling tired or having little energy: Not at all 5. Poor appetite or overeating: Not at all 6. Feeling bad about yourself - or that you are a failure or have let yourself or your family down: Not at all 7. Trouble concentrating on things, such as reading the newspaper or watching television: Not at all 8. Moving or speaking so slowly that other people could have noticed? - Or the opposite - being so fidgety or restless that you have been moving around a lot more than usual: not at all 9. Thoughts that you would be better off or of hurting yourself in some way: Not at all Total score: 0 If you checked off any problems, how difficult have these problems made it for you to do your work, take care of things at home, or get along with other people?: not difficult at all Source: Developed by Drs. Rashaad Taylor, Angeles Frederick, Isreal Hoff and colleagues, with an educational mariama from [employer]. 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 No contractions, LOF, VB and reports good FM. Denies BRICEÑO, VC, and epigastric pain. - Hortencia Weaver presents for a visit at 38 weeks and 1 day gestation, . - Patient reports feeling good overall. - Denies experiencing contractions. - Confirms adherence to previously recommended activities: - Walking - Using exercise ball - Reports consistent movement. - No specific complaints or concerns mentioned. Care OB Visit Log OB Flowsheet Initial Weight: Not Recorded Date <del>?</del> EGA Weight BP Alb Glu CTX Pres Fundal ht FHR Mov Dilation Station Effacement Hx Notes Visit Note 08/25/24 <del>?</del> 29w 2d 90.378 kg 126/80 absent 29 160 active 28-year-old 3 para 0 for first visit at [facility] OB clinic. Patient was a transfer from [facility] no records. She states that her due date is November 08, 2024. Reports good movement. She reports that this has been complicated. And her labs were done and she last did her 1 hour Glucola that was normal per patient. She is taking vitamins denies any signs of labor. And reports good movement. Plan today is to schedule an M anatomy scan [facility]. Continue prenatals and vitamin D and iron and discussed labor precautions and diet and weight with patient. Return in 3 weeks OB check 28-year-old 3 para 0 for first visit at [facility] OB clinic. Patient was a transfer from [facility] no records. She states that her due date is November 08, 2024. Reports good movement. She reports that this has been uncomplicated. And her labs were done and she last did her 1 hour Glucola that was normal per patient. She is taking vitamins denies any signs of labor. And reports good movement. Plan today is to schedule an MFM anatomy scan [facility]. Continue prenatals and vitamin D and iron and discussed labor precautions and diet and weight with patient. Return in 3 weeks OB check 28-year-old 3 para 0 for first visit at [facility] OB clinic. Patient was a transfer from [facility] no records. She states that her due date is November 08, 2024. Reports good movement. She reports that this has been uncomplicated. And her labs were done and she last did her 1 hour Glucola that was normal per patient. She is taking vitamins denies any signs of labor. And reports good movement. Plan today is to schedule an MFM anatomy scan [facility]. Continue prenatals and vitamin D and iron and discussed labor precautions and diet and weight with patient. Return in 3 weeks OB check. decline TDAP 09/15/24 <del>?</del> 32w 2d 92.646 kg 127/81 absent cephalic 33 135 active fetus active. no PTL complaints. no Leaking,or bleeding. fetus active. MFM pending discuss FKC BID, ptl precaution, increase fluid. f/u on mfm appointment. continue PNV, discuss diet and weight. rtc 2 week OBC 09/29/24 <del>?</del> 34w 2d 92.533 kg 129/84 absent cephalic 34 134 active fetus active, denies VB,LOF and PTL complaints, fetus active per pt PTL precaution reviewed, discuss FKC. continue PNV, hydrate, f/u mfm 10/06/2/5 10/13/24 <del>?</del> 36w 2d 96.275 kg 119/81 occasional cephalic 35 145 active fetus active, pressure and cramps, no leaking or bleeding GBS today, discuss labor precaution, fkc bid, discuss ER precaution,and PIH precaution. hydrate, rtc 1 week OBC 10/20/24 <del>?</del> 37w 2d 95.368 kg 123/85 occasional cephalic 40 140 active Reports period-like cramps ([place]), no leaking or bleeding, good FM. Recently evaluated at hospital and discharged. vitamins continued Return visit with Dr. Ley next week, Ingris VANEGAS on November 03. Encourage daily 15?20 min walks, use exercise ball, monitor for labor. Await spontaneous labor; induce after 40 weeks if needed. 10/26/24 <del>?</del> 38w 1d 96.615 kg 134/87 absent cephalic 40 140 active Hortencia Weaver, at 38+1 wks for routine visit, no ctx, LOF, VB, good FM, denies BRICEÑO, VC, epigastric pain, continuing walking and exercise ball per recommendations, FHT 159-160 bpm, continue current care with next appointment with Ingris Tamy. KATHARINA Calculator Estimated Delivery Date Method Current WG Current Estimate 11/08/24 LMP (Certain) 38w 1d Other Estimates 11/03/24 Ultrasound #1 38w 6d Notes Visit Date: 09/29/24 Last Updated by: Ingris Vasquez CNM 1 hr gtt wnl Visit Date: 09/15/24 Last Updated by: Ingris Vasquez CNM 28 yo , lmp 02/01/25. edc 11/08/24. transfer of car from Dr haynes. gtt: 115, hbsag:neg, HIV-,HC-, A1c: 5.0, gc/ct-,A+,abs- Exam General General Appearance: alert, in no apparent distress and healthy appearing Head Head exam: atraumatic Neck Neck exam: Present normal inspection and trachea midline Chest Chest inspection: Present normal inspection and symmetric chest wall rise External exam: Present normal external exam; Absent tenderness Neuro Neurological exam: Present oriented X3 Psych Psychiatric exam: Present normal affect and normal mood Office Procedures OB Clinic LOC & Office Proc's Nursing/Assessment Patient Status: Established Patient OB Clinic Nursing Assessment: Medication Reconciliation, Update PMH in EMR and Vital Signs OB Clinic Coordination of Care: Complex Care and Chronic Disease 1-5, Consent,records obtained, informed consent, Education Simp Pt/Fam and Staff clarify orders Special Needs: Heart tones Established Patient Charge Established Patient Point Assignment: 115 Established Patient Point Charge: EP Level 3 (80-115) Assessment & Plan Diagnosis / Problem List (1) size inconsistent with dates: Status: Acute (2) Encounter for supervision of normal in multigravida in third trimester: Status: Acute Plan Problem List - , 38 weeks and 1 day Assessment at 38 weeks and 1 day gestation presenting for routine visit. Patient reports no contractions. heart rate auscultated at 159-160 bpm, within normal range. Patient confirms movement is active. Patient appears to be progressing normally in without complications noted. Plan - Continue current care regimen - Keep scheduled appointment with Ingris on Friday next week
[2024-10-26 09:23] VITALS: BP 134/87; PULSE 78; RESP 17; TEMP 36.4; O2SAT 98; BMI 39.2
== END 2024-10-26 10:03 | disposition home or self-care (01) ==
LOC: HODSOBC 09:16
PROVIDERS: PCP Obstetrics & Gynecology; Referring Provider Obstetrics & Gynecology; Supervising Provider Obstetrics & Gynecology; Visit Provider Obstetrics & Gynecology
DX: O09.893 Supervision of other high risk pregnancies, third trimester (principal); O26.843 Uterine size-date discrepancy, third trimester; Z3A.38 38 weeks gestation of pregnancy
CPT/HCPCS: 99213; G0463

== ENCOUNTER 2024-10-28 00:11 | Observation (INO) | payer MEDICAID, SELFPAY ==
[2024-10-28 00:17] VITALS: BMI 39.6
[2024-10-28 00:23] VITALS: BP 142/83; PULSE 83; RESP 100; RESP 16; TEMP 36.9
[2024-10-28 00:24] VITALS: BP 142/84; PULSE 83
[2024-10-28 00:30] VITALS: BP 133/66; PULSE 71
== END 2024-10-28 01:25 | disposition home or self-care (01) ==
PROVIDERS: Admitting Provider Specialist; PCP Family Medicine; Visit Provider Specialist
DX: O47.1 False labor at or after 37 completed weeks of gestation (principal); Z3A.38 38 weeks gestation of pregnancy
CPT/HCPCS: 59025; 59899

== ENCOUNTER 2024-11-02 08:29 | Outpatient (AMB) | payer MEDICAID, SELFPAY ==
--- NOTE | 2024-11-02 08:37 | AMB.OBVISIT ---
Vital Signs 11/02/24 08:52 Height 1.57 m Height Method Measured Weight 98.543 kg Weight Measurement Method Standing Scale BMI 39.7 BP 130/85 H Blood Pressure Source Automatic Cuff Blood Pressure Location Right Upper Arm Position Sitting Respiration 17 Pulse 88 Pulse Source Monitor Temp 97.8 F Temp Source Oral Pulse Oximetry (%) 97 Oxygen Delivery Method Room Air Allergies/Home Meds Allergies & Medications Allergies No Known Allergies Allergy (Verified 11/02/24 08:38) Medication Reconciliation vits no.126-ferrous fum 28 mg iron-folic acid 800 mcg tablet (Classic ) 1 tab PO QDAY 08/25/24 [History Confirmed 11/02/24] cholecalciferol (vitamin D3) 1 tab PO QDAY 10/28/24 [History Confirmed 11/02/24] ferrous sulfate 325 mg (65 mg iron) tablet (FeroSul) 325 mg PO QDAY 10/28/24 [History Confirmed 11/02/24] Intake Visit Data Collection New Patient or Established: Established Patient (seen at [facility] within 3 years) Reason for Visit:: care Seen by Clinical Staff ONLY (RN/MA): No 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 1. Little interest or pleasure in doing things: not at all 2. Feeling down, depressed, or hopeless: not at all Total score: 0 PHQ-9 3. Trouble falling or staying asleep, or sleeping too much: Not at all 4. Feeling tired or having little energy: Not at all 5. Poor appetite or overeating: Not at all 6. Feeling bad about yourself - or that you are a failure or have let yourself or your family down: Not at all 7. Trouble concentrating on things, such as reading the newspaper or watching television: Not at all 8. Moving or speaking so slowly that other people could have noticed? - Or the opposite - being so fidgety or restless that you have been moving around a lot more than usual: not at all 9. Thoughts that you would be better off or of hurting yourself in some way: Not at all Total score: 0 Source: Developed by Drs. Rashaad Taylor, Angeles Frederick, Isreal Hoff and colleagues, with an educational mariama from [employer]. 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 Patient was a transfer from [facility] no records. She states that her due date is November 08, 2024. Reports good movement. She reports that this has been complicated. And her labs were done and she last did her 1 hour Glucola that was normal per patient. She is taking vitamins denies any signs of labor. And reports good movement. Plan today is to schedule an [facility] anatomy scan [facility]. Continue prenatals and vitamin D and iron and discussed labor precautions and diet and weight with patient. Return in 3 weeks OB check 28-year-old 3 para 0 for first visit at [facility] OB clinic. Patient was a transfer from [facility] no records. She states that her due date is November 08, 2024. Reports good movement. She reports that this has been uncomplicated. And her labs were done and she last did her 1 hour Glucola that was normal per patient. She is taking vitamins denies any signs of labor. And reports good movement. Plan today is to schedule an MFM anatomy scan [facility]. Continue prenatals and vitamin D and iron and discussed labor precautions and diet and weight with patient. Return in 3 weeks OB check 28-year-old 3 para 0 for first visit at [facility] OB clinic. Patient was a transfer from [facility] no records. She states that her due date is November 08, 2024. Reports good movement. She reports that this has been uncomplicated. And her labs were done and she last did her 1 hour Glucola that was normal per patient. She is taking vitamins denies any signs of labor. And reports good movement. Plan today is to schedule an MFM anatomy scan [facility]. Continue prenatals and vitamin D and iron and discussed labor precautions and diet and weight with patient. Return in 3 weeks OB check. decline TDAP 09/15/24 <del>?</del> 32w 2d 92.646 kg 127/81 absent cephalic 33 135 active fetus active. no PTL complaints. no Leaking,or bleeding. fetus active. MFM pending discuss FKC BID, ptl precaution, increase fluid. f/u on mfm appointment. continue PNV, discuss diet and weight. rtc 2 week OBC 09/29/24 <del>?</del> 34w 2d 92.533 kg 129/84 absent cephalic 34 134 active fetus active, denies VB,LOF and PTL complaints, fetus active per pt PTL precaution reviewed, discuss FKC. continue PNV, hydrate, f/u mfm 10/13/24 <del>?</del> 36w 2d 96.275 kg 119/81 occasional cephalic 35 145 active fetus active, pressure and cramps, no leaking or bleeding GBS today, discuss labor precaution, fkc bid, discuss ER precaution,and PIH precaution. hydrate, rtc 1 week OBC 10/20/24 <del>?</del> 37w 2d 95.368 kg 123/85 occasional cephalic 40 140 active Reports period-like cramps ([place]), no leaking or bleeding, good FM. Recently evaluated at hospital and discharged. vitamins continued Return visit with Dr. Ley next week, Ingris VANEGAS on November 03. Encourage daily 15?20 min walks, use exercise ball, monitor for labor. Await spontaneous labor; induce after 40 weeks if needed. 10/26/24 <del>?</del> 38w 1d 96.615 kg 134/87 absent cephalic 40 140 active Hortencia Weaver, at 38+1 wks for routine visit, no ctx, LOF, VB, good FM, denies BRICEÑO, VC, epigastric pain, continuing walking and exercise ball per recommendations, FHT 159-160 bpm, continue current care with next appointment with Ingris Friday. 11/02/24 <del>?</del> 39w 1d 98.543 kg 130/85 occasional cephalic 40 146 active 0 -4 25 sve: closed/thick/high. mid/soft, denies, bkeeding,leaking.no VXC, no epigastric pain or BRICEÑO, increased cramps, fetus active discuss PIH complaints, comfort measure for early labor. fkc bid.discuss danger s/s, rtc 1 week KATHARINA Calculator Estimated Delivery Date Method Current WG Current Estimate 11/08/24 LMP (Certain) 39w 1d Other Estimates 11/03/24 Ultrasound #1 39w 6d Notes Visit Date: 09/29/24 Last Updated by: Ingris Vasquez CNM 1 hr gtt wnl Visit Date: 09/15/24 Last Updated by: Ingris Vasquez CNM 28 yo , lmp 02/01/25. edc 11/08/24. transfer of car from Dr haynes. gtt: 115, hbsag:neg, HIV-,HC-, A1c: 5.0, gc/ct-,A+,abs- Office Procedures OB Clinic LOC & Office Proc's Nursing/Assessment Patient Status: Established Patient OB Clinic Nursing Assessment: Medication Reconciliation, Update PMH in EMR and Vital Signs OB Clinic Coordination of Care: Complex Care and Chronic Disease 1-5, Consent,records obtained, informed consent, Education Simp Pt/Fam, Lab and Imaging orders, Results/Orders obtained and Staff clarify orders Special Needs: Heart tones Miscellaneous Interventions: Blood/Urine Collection Established Patient Charge Established Patient Point Assignment: 165 Established Patient Point Charge: EP Level 5 (160-above) Assessment & Plan Diagnosis / Problem List (1) Encounter for supervision of normal in multigravida in third trimester: Status: Acute Plan IOL 1 week. discuss PIH precaution. labor precaution, fkc bid. no salt, comfort measure for swelling. rtc 1 week Additional Plan Follow Up: 1 Week (obc)
[2024-11-02 08:52] VITALS: BP 130/85; PULSE 88; RESP 17; TEMP 36.6; O2SAT 97; BMI 39.7
[2024-11-02 10:54] LABS: Bilirubin,Urine Clinitek Negative (Negative); Blood,Urine Clinitek Trace-intact (Negative); Glucose, Urine Clinitek Negative (Negative); Ketones,Urine Clinitek Negative (Negative); Leukocyte Esterase,Urine Clin 1+ (Negative); Nitrite,Urine Clinitek Negative (Negative); PH,Urine Clinitek 6.0 (5.0-7.0); Protein,Urine Clinitek Negative (Neg - Trace); Specific Gravity,Urine Clin 1.020 (1.001-1.030); Urobilinogen,Urine Clinitek 0.2 mg/dL (0.0-1.0)
== END 2024-11-02 09:10 | disposition home or self-care (01) ==
LOC: HODSOBC 08:29
PROVIDERS: PCP Advanced Practice Midwife; Referring Provider Advanced Practice Midwife; Supervising Provider Advanced Practice Midwife; Visit Provider Advanced Practice Midwife
DX: Z34.83 Encounter for supervision of other normal pregnancy, third trimester (principal); Z3A.39 39 weeks gestation of pregnancy
CPT/HCPCS: 81001; 99215; G0463

== ENCOUNTER 2024-11-05 02:22 | Inpatient (IN) | payer MEDICAID, SELFPAY ==
[2024-11-05] VITALS (73 sets, daily range): BP systolic 114–189; BP diastolic 57–101; PULSE 66–97; RESP 16–99; TEMP 36.3–36.8; O2SAT 98–100; BMI 39.8
--- NOTE | 2024-11-05 03:23 | XR_ITS ---
Examination: Complete OB ultrasound greater than 14 weeks Date and time of exam: November 05, 2024 0330 hours INDICATIONS: Labor evaluation Findings: Viable intrauterine single fetus with single amniotic sac presentation cephalic Cardiac motion 147 BPM Placenta anterior grade 2 Umbilical cord insertion 3 vessel seen Amniotic fluid index 5.1 cm Cervix 3.5 cm Ovaries are obscured by bowel gas. Composite estimated gestational age based on BPD, head circumference, abdominal circumference, femur length is 38 weeks 0 days Estimated weight 3563 g. Survey of intracranial anatomy, spinal anatomy, abdominal anatomy, four-chamber heart performed with no abnormalities identified. Impression: Viable intrauterine gestation cephalic presentation.
[2024-11-05] MEDS: RINGERS LACTATED 1000 ML 1,000 ML 999 ML IV (03:30)
[2024-11-05 03:49] LABS: Collection Type, Urine Clean Catch
[2024-11-05 03:50] LABS: Basophils # (Auto) 0.0 Thou/mm3 (0.0-0.2); Basophils % (Auto) 0 % (0-2.5); Eosinophils # (Auto) 0.1 Thou/mm3 (0.0-0.5); Eosinophils % (Auto) 1 % (0-10); Hematocrit 37.9 % (36.0-46.0); Hemoglobin 13.7 g/dL (12.0-16.0); Immature Granulocytes Auto 0.03 Thou/mm3 (0.00-0.00); Lymphocytes # (Auto) 2.6 Thou/mm3 (1.0-4.8); Lymphocytes % (Auto) 29 % (10-50); Mean Corpuscular HGB Conc 36.1 g/dl (31.0-37.0); Mean Corpuscular Hemoglobin 30.2 pg (25.0-35.0); Mean Corpuscular Volume 84 fL (80-100); Monocytes # (Auto) 0.8 Thou/mm3 (0.0-0.8); Monocytes % (Auto) 9 % (0-12); Neutrophils # (Auto) 5.6 Thou/mm3 (1.8-7.7); Neutrophils % (Auto) 61 % (37-80); Nucleated Red Blood Cell # 0.00 Thou/mm3 (0.00-0.00); Nucleated Red Blood Cell % 0 /100 WBC (0); Platelet Count 230 Thou/mm3 (140-440); RDW Standard Deviation 38.7 fL (36.4-46.3); Red Blood Count 4.53 Miln/mm3 (4.00-5.20); White Blood Count 9.2 Thou/mm3 (3.6-11.0)
[2024-11-05 03:57] LABS: Amorphous Crystals,Urine Present (Absent); Bacteria,Urine Rare; Bilirubin,Urine Negative (Negative); Blood,Urine Negative (Negative); Clarity,Urine Clear (Clear/Hazy); Color,Urine Lt-Yellow (Lt Yel-Yel); Glucose, Urine Negative (Negative); Ketones,Urine Negative (Negative); Leukocyte Esterase,Urine Negative (Negative); Nitrite,Urine Negative (Negative); PH,Urine 6.5 (5.0-7.0); Protein,Urine Negative (Neg - Trace); RBC,Urine 1 /hpf (0-3); Specific Gravity,Urine 1.012 (1.001-1.035); Squamous Epithelial Cell,Urine 1 /hpf (0-5); Urobilinogen,Urine Negative mg/dL (0.0-1.0); WBC,Urine 1 /hpf (0-5)
[2024-11-05 04:09] LABS: Alanine Aminotransferase 20 U/L (10-49); Albumin, Serum 3.9 gm/dL (3.5-5.0); Albumin/Globulin Ratio 1.6 (1.2-2.2); Alkaline Phosphatase 167 U/L (46-116); Anion Gap 12 (7-16); Aspartate Amino Transferase 21 U/L (0-34); BUN/Creatinine Ratio 12 Ratio (12-20); Bilirubin,Total 0.3 mg/dL (0.3-1.2); Blood Urea Nitrogen 7 mg/dL (9-23); Calcium 9.6 mg/dL (8.3-10.6); Calcium (Corrected) 9.7 mg/dL (8.5-10.1); Carbon Dioxide 20.9 mMol/L (20.0-31.0); Chloride 107 mMol/L (98-107); Creatinine (Component) 0.6 mg/dL (0.6-1.3); Estimated Creatinine Clearance 154.6 mL/min (>60); Fibrinogen 511 mg/dL (175-375); Globulin 2.5 gm/dL (2.3-3.5); Glucose 87 mg/dL (74-106); INR 0.9 (0.9-1.3); Osmolality,Calculated 276 (275-295); Partial Thromboplastin Time 30.8 Seconds (22.0-36.0); Potassium 4.0 mMol/L (3.4-5.1); Prothrombin Time 10.2 Seconds (9.0-12.2); Sodium 140 mMol/L (136-145); Total Protein 6.4 gm/dL (5.7-8.2); Uric Acid 5.1 mg/dL (3.1-7.8); eGFR > 60 See Note
--- NOTE | 2024-11-05 04:39 | PRELIM_ITS ---
Obstetric ultrasound. November 05, 2024 at 0333 hours Clinical history: Complete OB ultrasound. Comparison: None. Findings: There is a gravid uterus with a live fetus in cephalic presentation of mean gestational age 38 weeks and 0 day (by biometry). cardiac activity is present at a heart rate of 147 beats per minute. The placenta is anterior in location, maturity grade 2 . There is no evidence of placenta previa or retroplacental hemorrhage. Amniotic fluid is low (JASWINDER = 5.1 cm). Estimated weight is 3563 grams+/- 527 grams. Estimated due date by ultrasound is 11/19/2024. The cervical length measures 3.8 cm. Biometry: BPD = 9.7 cm (39 weeks 4 days) HC = 31.4 cm (35 weeks 2 days) AC = 35.7 cm (39 weeks 4 days) FL = 7.4 cm (37 weeks 5 days) The ovaries are not visualized due to gestational age on this examination. Impression: Gravid uterus with a single live fetus in cephalic presentation of mean gestational age 38 weeks 0 day. Amniotic fluid is low (JASWINDER = 5.1 cm) suggestive of borderline oligohydramnios. Recommend clinical correlation and follow-up. Report Electronically Signed By: Mirtha Castañeda 11/05/2024 4:39:45 AM [EST]
[2024-11-05] MEDS: RINGERS LACTATED 1000 ML 1,000 ML 100 ML IV (04:40)
[2024-11-05] MEDS: LABETALOL 100 MG TABLET 200 MG PO ×3 (04:49→21:04)
[2024-11-05 05:20] LABS: Syphilis Nonreactive (Nonreactive)
--- NOTE | 2024-11-05 20:58 | ESHP_ITS ---
Documentation for date of: 11/05/24 OB Labor/Induct. HPI History of Present Illness Chief complaint: early labor : 3 Para: 0 Term pregnancies: 0 pregnancies: 0 Living children: 0 History of Abortions: Spontaneous and Elective: 2 History of Vaginal deliveries: 0 History of sections: No History of : No Date of last menstrual period: 02/02/24 KATHARINA: 11/08/24 Gestational Age (weeks): 39 Gestational Age (days): 4 Gestational age based on last menstrual period: 39 Indication for induction: medical complication (gestational hypertention) History of present illness: 29-year-old 3 para 0 admit to labor and delivery with complaints of contractions since midnight. Patient denies any signs and symptoms PIH. No visual changes. Last. Was February 02, 2024. This gives due date of November 03, 2024. So patient is 39 and 4. She started care with Dr. Reece at around 12 weeks. She had a 22-week ultrasound in June that did gave her due date November 03, 2024. Denies social habits. Denies surgery. Denies chronic illness. Patient transferred care from Dr. Reece in the third trimester. Blood pressures had been in mild range. However while while in labor and delivery she had 2 severe blood pressures and so patient was kept for induction. Started on labetalol 200 3 times daily. Patient is A+, antibody screen negative, RPR nonreactive, rubella nonimmune, hepatitis B negative, hep C negative, HIV negative, GC and Chlamydia were negative. Patient had a negative NIPT and carrier screens. And ultrasounds had shown normal anatomy. History of Present Dating criteria: LMP confirmed by 1st trimester US Adequate Care: Yes Ultrasounds: normal 1st trimester US and normal mid trimester US Obstetrical complications: gestational hypertension Medical complications: none Labs Labs: Negative: RPR, Hepatitis B, Rubella Titre, HIV, Chlamydia, Gonorrhea and Group Beta Strep and Unknown: Herpes Type 1, Herpes Type 2 and Covid-19 Review of Systems Review of Systems Systems Reviewed: All systems reviewed, normal except as documented Past Medical History Surgical History SURGICAL: Negative Section Meds Home Medications and Allergies Home Medications ?Medication ?Instructions ?Recorded ?Confirmed ?Type vits no.126-ferrous fum 1 tab PO QDAY 08/25/2 5 11/05/24 History 28 mg iron-folic acid 800 mcg tablet (Classic ) cholecalciferol (vitamin D3) 1 tab PO QDAY 10/28/24 History ferrous sulfate 325 mg (65 mg 325 mg PO QDAY 10/28/24 11/05/24 History iron) tablet (FeroSul) Allergies Allergy/AdvReac Type Severity Reaction Status Date / Time No Known Allergies Allergy Verified 11/05/24 05:37 OB Exam Physical Exam Vital signs: Temp Pulse Resp BP Pulse Ox 97.8 F 77 17 129/74 99 11/05/24 19:05 11/05/24 20:20 11/05/24 19:05 11/05/24 20:20 11/05/24 04:13 Narrative: Alert and oriented. Normal heart rate and rhythm. Lungs clear no wheezes. Gravid abdomen. Gynecoid pelvis. Estimated weight by ultrasound was 3560. Vertex. Bag water intact. heart rate on admission category 1 with accelerations and moderate variability and contractions after IV hydration were every 4 to 5 minutes. Detailed Labor and Delivery Exam Dilation (cm): 1 Effacement (%): thick Cervix position: posterior station: -3 Consistency: soft Presentation: Vertex Cervical ripeness score: 3 Membranes: intact Baseline heart rate: 145 monitor accelerations: 15x15 monitor decelerations: None long-term variability: Moderate (11-25) Contraction frequency (min): 4-5 Contraction duration (sec): 30 Tachysystole: No Contraction intensity: Mild OB Results Labs 11/05/24 03:41 11/05/24 03:41 Labs: Short CBC 11/05/24 Range/Units 03:41 WBC 9.2 (3.6-11.0) Thou/mm3 Hgb 13.7 (12.0-16.0) g/dL Hct 37.9 (36.0-46.0) % Plt Count 230 (140-440) Thou/mm3 BMP 11/05/24 03:41 Sodium 140 Potassium 4.0 Chloride 107 Carbon Dioxide 20.9 BUN 7 L Creatinine 0.6 Glucose 87 Calcium 9.6 Liver Function 11/05/24 Range/Units 03:41 Total Bilirubin 0.3 (0.3-1.2) mg/dL AST 21 (0-34) U/L ALT 20 (10-49) U/L Alkaline Phosphatase 167 H (46-116) U/L Albumin 3.9 (3.5-5.0) gm/dL Urine 11/05/24 Range/Units 02:30 Urine Color Lt-Yellow (Lt Yel-Yel) Urine Clarity Clear (Clear/Hazy) Urine pH 6.5 (5.0-7.0) Ur Specific [place] 1.012 (1.001-1.035) Urine Protein Negative (Neg - Trace) Urine Glucose (UA) Negative (Negative) OB Assessment & Plan Assessment and Plan (1) Normal labor and delivery: Status: Acute Additional Plan Induction method: per misoprostol protocol Plan: induction, anticipate NVD, consult prmathew and other (labetolol 200 tid, start cervidil)
[2024-11-06] VITALS (173 sets, daily range): BP systolic 118–154; BP diastolic 62–96; PULSE 68–116; RESP 18–24; TEMP 36.7–37.2; O2SAT 89–100
[2024-11-06] MEDS: RINGERS LACTATED 1000 ML 1,000 ML 100 ML IV ×2 (01:42→11:24)
[2024-11-06] MEDS: PROMETHAZINE INJ 25 MG/ML VIAL 12.5 MG IM (03:15)
[2024-11-06] MEDS: MEPERIDINE INJ 50 MG/ML VIAL IM (03:15)
[2024-11-06] MEDS: LABETALOL 100 MG TABLET 200 MG PO ×2 (05:24→14:05)
[2024-11-06] MEDS: OXYTOCIN in NS 30 units 30 UNIT/500 ML BAG IV (07:43)
--- NOTE | 2024-11-06 08:30 | PD.LDPN ---
Documentation for date of: 11/06/24 OB Labor Progress Note Pain Control Pain control: epidural Pelvic Exam Dilation (cm): 4 Effacement (%): 90 station: -3 Amniotic membrane status: Intact Contractions Monitor mode: External Contraction frequency: 2-4.5 Contraction pattern: Tetanic Contraction intensity: Moderate Status status: Category l Assessment and Plan Pitocin rate (mU/min): 1 Assessment: induction ongoing Plan OB labor note: continuous present management CNM Management MD Consulted (describe details below): Yes
[2024-11-06] MEDS: ONDANSETRON INJ 2 MG/ML INJ 2 ML 4 MG IVP (11:58)
[2024-11-06] MEDS: OXYTOCIN INJ 10 UNIT/ML VIAL IM (15:40)
[2024-11-06] MEDS: TRANEXAMIC ACID 1,000 MG IVPB 1,000 MG/100 ML BAG 200 MG IV ×2 (15:40→17:06)
[2024-11-06] MEDS: OXYTOCIN in NS 20 units 20 UNIT/1,000 ML BAG 125 UNIT IV (15:40)
[2024-11-06] MEDS: MINERAL OIL 30 ML UDC TOP (15:41)
[2024-11-06] MEDS: BENZO/LANO/ALOE (Dermoplast) 60 GM CAN 1 SPRAY TOP (15:52)
--- NOTE | 2024-11-06 16:23 | OBDSUM_ITS ---
Data (Thomas) Data Hx Section: No : 3 Term: 0 : 0 Livin Abortions: Spontaneous & Theraputic: 2 Delivery Data (Thomas) Labor Data Initiation of labor: Induction Induction/Augmentation Agent: Cytotec-Vaginal, Cervidil and Pitocin ROM date: 11/06/24 ROM time: 14:00 Amniotic membrane rupture type: Spontaneous Amniotic fluid description: Clear Delivery Data EDC: 11/09/24 EDC calculated by:: LMP/early US confirmation Date of arrival to unit: 11/05/24 Time of arrival to unit: 02:22 Onset of labor date: 11/06/24 Onset of labor time: 11:20 Complete dilation date: 11/06/24 Complete dilation time: 15:06 delivery date: 11/06/24 delivery time: 15:32 Gestational age (weeks): 39 Gestational age (days): 4 Placenta delivery date: 11/06/24 Placenta delivery time: 15:38 Stage 1 total time: Labor - Stage 1 Duration 3 hours and 46 minutes Delivered by: Christina VANEGAS Delivery nurse: Colin Giordanoorn nurse: Cindy RED Family Practice Physician at delivery: No Support person(s) at delivery: Spouse, Grandmother Other staff at delivery: Nayely tenorio RN Delivery Method Delivery method: Normal Vaginal Delivery Presentation: Vertex position: OA Anesthesia Type Anesthesia Type: Epidural Delivery Room Medications Delivery room medications given: fentanyl Delivery room medications: Pitocin 10 u IM, Pitocin 20 u IV and Cytotec 800 RI Placenta Placenta delivery description: Spontaneous Cord blood sent to lab: Yes cord blood collection: Cord Blood Type Episiotomy Episiotomy description: None Lacerations #1: Vaginal: 1st degree (2 vaginal laceration side wall and vaginal floor) Perineal repair Sutures used for repair: 3.0 Vicryl (2.0) EBL Estimated blood loss (ml): 400 Umbilical Cord cord description: 3 Vessels and Nuchal Cord (x1 tight, anterior hand) Data (Thomas) Data order: 1 [place]'s gender: Female Identification band number: [id number] weight (gms): 3150 g Weight (pounds): 6 lbs and 15.1 ozs [place] length: 50 cm 1 minute: 8 5 minutes: 9
[2024-11-06] MEDS: IBUPROFEN TAB 400 MG TABLET 800 MG PO (17:51)
[2024-11-06 23:32] LABS: Basophils # (Auto) 0.0 Thou/mm3 (0.0-0.2); Basophils % (Auto) 0 % (0-2.5); Eosinophils # (Auto) 0.0 Thou/mm3 (0.0-0.5); Eosinophils % (Auto) 0 % (0-10); Hematocrit 33.1 % (36.0-46.0); Hemoglobin 12.0 g/dL (12.0-16.0); Immature Granulocytes Auto 0.03 Thou/mm3 (0.00-0.00); Lymphocytes # (Auto) 2.0 Thou/mm3 (1.0-4.8); Lymphocytes % (Auto) 15 % (10-50); Mean Corpuscular HGB Conc 36.3 g/dl (31.0-37.0); Mean Corpuscular Hemoglobin 30.7 pg (25.0-35.0); Mean Corpuscular Volume 85 fL (80-100); Monocytes # (Auto) 1.4 Thou/mm3 (0.0-0.8); Monocytes % (Auto) 10 % (0-12); Neutrophils # (Auto) 10.1 Thou/mm3 (1.8-7.7); Neutrophils % (Auto) 74 % (37-80); Nucleated Red Blood Cell # 0.00 Thou/mm3 (0.00-0.00); Nucleated Red Blood Cell % 0 /100 WBC (0); Platelet Count 171 Thou/mm3 (140-440); RDW Standard Deviation 40.6 fL (36.4-46.3); Red Blood Count 3.91 Miln/mm3 (4.00-5.20); White Blood Count 13.6 Thou/mm3 (3.6-11.0)
[2024-11-07] VITALS: BP 126/84; PULSE 91; RESP 18; TEMP 37.2; O2SAT 98
--- NOTE | 2024-11-07 03:10 | PD.LDPPPRG ---
Subjective Subjective Interval history: Denies headache and PIH complaints. No complaints of pain. No complaints of dizziness. Bonding and breast-feeding Exam Vital Signs Temp Pulse Resp BP Pulse Ox O2 Del Method 98.9 F 91 18 126/84 98 Room Air 11/07/24 00:00 11/07/24 00:00 11/07/24 00:00 11/07/24 00:00 11/07/24 00:00 11/07/24 00:00 Narrative Exam Vital signs are stable afebrile. Her breasts are soft. Fundus firm below the umbilicus. No edema noted. 2+ DTRs. Negative Homans' sign. Uterus is well involuted. Perineum is intact with minimal swelling. Small lochia Objective Labs 11/06/24 23:13 11/05/24 03:41 Labs: Laboratory Results - last 24 hr 11/06/24 23:13 WBC 13.6 H D RBC 3.91 L Hgb 12.0 Hct 33.1 L MCV 85 MCH 30.7 MCHC 36.3 RDW Std Deviation 40.6 Plt Count 171 D Neut % (Auto) 74 Lymph % (Auto) 15 [place] % (Auto) 10 Eos % (Auto) 0 Baso % (Auto) 0 Neut # (Auto) 10.1 H Lymph # (Auto) 2.0 [place] # (Auto) 1.4 H Eos # (Auto) 0.0 Baso # (Auto) 0.0 Immature Gran # (Auto) 0.03 H Absolute Nucleated RBC 0.00 Immature Gran % 0 Nucleated RBC % 0 Assessment & Plan Problem List (1) Normal labor and delivery: Status: Acute Assessment Comment Assessment comment: 24 hr pp, gestational hypertention Plan Comment Plan Comment: Discharge home with labetalol 200 twice daily. Tylenol or ibuprofen for pain. Continue prenatals. Increase fluids. Discussed comfort measures for vaginal lacerations. Discussed sitz bath's. Discussed signs symptoms of preeclampsia and ER precautions with parameters. I discussed signs and symptoms of infection and danger signs and symptoms and return in 1 week for BP check Time Spent With Patient Time: Total time spent is greater than 50% in coordination of care (as documented) at patient's floor/unit and/or counseling patient:
--- NOTE | 2024-11-07 03:13 | ESDS_ITS ---
DS: Providers Provider Date of admission: 11/05/24 04:29 Primary care physician: Physician No Primary/Family Admitting Provider: Wade Ley MD Attending Provider on Admission: Ingris Vasquez CNM Consults: 11/06/24 17:27 Referral Routine Comment: Attending Provider on DC: Ingris Vasquez CNM Discharging Provider: Ingris Vasquez CNM DS: Diagnosis Problem List Completed Was Problem List Reviewed/Reconciled?: Yes Summary/Hosp Course Brief History: 29-year-old 3 para 0 admit to labor and delivery with complaints of contractions since midnight. Patient denies any signs and symptoms PIH. No visual changes. Last. Was February 02, 2024. This gives due date of November 03, 2024. So patient is 39 and 4. She started care with Dr. Reece at around 12 weeks. She had a 22-week ultrasound in June that did gave her due date November 03, 2024. Denies social habits. Denies surgery. Denies chronic illness. Patient transferred care from Dr. Reece in the third trimester. Blood pressures had been in mild range. However while while in labor and delivery she had 2 severe blood pressures and so patient was kept for induction. Started on labetalol 200 3 times daily. Patient is A+, antibody screen negative, RPR nonreactive, rubella nonimmune, hepatitis B negative, hep C negative, HIV negative, GC and Chlamydia were negative. Patient had a negative NIPT and carrier screens. And ultrasounds had shown normal anatomy. Peripartum Data Delivery Method: Normal Vaginal Delivery Episiotomy Description: None Laceration Description: yes (vaginal/ side wall bilateral and vaginal floor) complications: none (discharge home on labetolol 200 bid) Time Spent with Patient Time attestation: Total time spent providing and/or coordinating discharge services: Exam Vital Signs Temp Pulse Resp BP Pulse Ox O2 Del Method 98.9 F 91 18 126/84 98 Room Air 11/07/24 00:00 11/07/24 00:00 11/07/24 00:00 11/07/24 00:00 11/07/24 00:00 11/07/24 00:00 Discharge Plan Plan Patient Disposition: HOME (Self Care) Patient condition on transfer: Stable Prescriptions/Referrals Prescriptions/Med Rec: New labetalol 200 mg tablet 200 mg PO BID Qty: 60 1RF ibuprofen 600 mg tablet 600 mg PO Q6H PRN (Reason: pain) Qty: 30 1RF No Action Classic 28 mg iron- 800 mcg tablet 1 tab PO QDAY cholecalciferol (vitamin D3) [Baby Vitamin D3] 1 tab PO QDAY ferrous sulfate [FeroSul] 325 mg (65 mg iron) tablet 325 mg PO QDAY Referrals: No Primary/Family,Physician [Primary Care Provider] - Patient/Caregiver Discharge Instructions Meds to Beds: No Discharge Activity: resume usual activities Print Language: [place] Irish Activity Restrictions/Additional Instructions: Discharge home today. Continue ibuprofen 600 p.o. every 6 hours as needed for pain. Tylenol as needed for pain. Continue vitamins. Patient will continue labetalol 200 twice daily. Discussed signs symptoms of PIH and ER precautions with patient. Discussed danger signs and symptoms. Discussed signs symptoms of infection. Increase fluids. Discussed comfort measures for vaginal laceration. Increase fluids and return in a week for BP check Stand Alone Forms: Alina Award Info., Patient Portal Info Letter Discharge Order Discharge Orders: Discharge (Routine); Ordered 11/07/24 Ordered By: Ingris Vasquez Planned Discharge Date 11/07/24
[2024-11-07 04:00] VITALS: BP 125/76; PULSE 86; RESP 18; TEMP 36.8; O2SAT 98
[2024-11-07 08:30] VITALS: BP 120/77; PULSE 90; RESP 17; TEMP 37.4; O2SAT 98
[2024-11-07] MEDS: IBUPROFEN TAB 400 MG TABLET 800 MG PO (08:39)
[2024-11-07] MEDS: DOCUSATE SOD 100 MG CAPSULE PO (08:39)
[2024-11-07] MEDS: DIPHTH,PERTUSS(ACELL),TET VAC 0.5 ML SYR- ADULT IMi (08:39)
[2024-11-07 12:50] VITALS: BP 123/80; PULSE 79; RESP 16; TEMP 36.8; O2SAT 99
== END 2024-11-07 17:30 | disposition home or self-care (01) | DRG 560 ==
LOC: S4SX 11-06 16:17 → S4NX 11-06 17:58
PROVIDERS: Admitting Provider Obstetrics & Gynecology; Visit Provider Advanced Practice Midwife
DX: O13.4 Gestational [pregnancy-induced] hypertension without significant proteinuria, complicating childbirth (principal); Z3A.39 39 weeks gestation of pregnancy; Z37.0 Single live birth; O69.1XX0 Labor and delivery complicated by cord around neck, with compression, not applicable or unspecified; O70.0 First degree perineal laceration during delivery; Z23 Encounter for immunization
CPT/HCPCS: 36415; 59025; 59409; 76805; 80053; 81001; 82570; 84156; 84550; 85025; 85384; 85610; 85730; 86780; 86850; 86900; 86901; 90707; 90715; 94762; J2175; J2405; J2550; J2590; J2795; J3010; J3490; J7120; S0191; A9270

== ENCOUNTER 2024-11-09 23:00 | Emergency (ER) | payer MEDICAID, SELFPAY ==
[2024-11-09 23:22] VITALS: BP 147/71; PULSE 97; RESP 18; TEMP 37.2; O2SAT 99
--- NOTE | 2024-11-09 23:50 | XR_ITS ---
Examination: PA chest single view TECHNIQUE: Upright PA chest single view. Date and time: November 10, 2024, 0002 hours. INDICATIONS: November 06, 2024, SOB today. FINDINGS: Normal heart size. No pneumonia or pulmonary edema. The osseous structures are intact. IMPRESSION: No pneumonia or pulmonary edema.
--- NOTE | 2024-11-10 00:01 | PD.EDRECHK ---
ED Recheck Abnl Lab Rx-RME/HPI General Chief Complaint: General Adult/Misc Complain Stated Complaint: HIGH BP Time Seen by Provider: 11/09/24 23:52 Arrival date/time: 11/09/24 23:00 RME / HPI RME / HPI narrative: This section includes all my notes and documentations, including HPI, PE, and ED course. Jacob Bowers MD HPI: 29yo female with a history of gestational HTN, 72-96 hour presents to the ED for complaints of headache, high blood pressure, BLE swelling, and left-sided abdominal pain. Patient states her symptoms started after she was discharged from our facility. She denies any blurry vision, nausea, vomiting, or shortness of breath. She takes Labetalol 200 mg BID. OB is Ingris Vasquez. No previous abdominal surgeries. No other complaints reported. ROS: All negative except as documented in HPI. Physical Exam: General: Alert and oriented. No acute distress when remaining still. Eyes: Conjunctivae and lids clear. ENT: No nasal congestion. Neck: Supple. Heart: RRR. Lungs: No respiratory distress. Good air movement. No rhonchi, wheezing, rales. Abdomen: Soft and nontender. Normal bowel sounds. No distension. No rebound or guarding. Back: No CVA tenderness. Skin: Warm and dry. Neuro: Alert and oriented X 3. I reviewed all diagnostic test results. My interpretation of the chest x-ray is no acute findings, official radiology report is pending. Blood tests remarkable for WBC 12.5, Fibrinogen 612, D-Dimer 852, Magnesium 1.4, AST 58, ALT 62, Alkaline Phosphatase 135. UA remarkable for positive leukocyte esterase, 8 RBCs, 434 WBCs, and rare bacteria. At this point, diagnoses include hypertension. Treatment here included Labetalol and Magnesium. Significant improvement noted. I discussed the case with our PHYSICAL THERAPY PROFESSOR. About the presentation and exam and diagnostics and treatments here. And possible need of further care in the hospital. Recommended outpatient follow-up. Based on my best medical judgment, made decision no further evaluation or treatment indicated at this time. Patient understands and agrees to the discharge instructions customized and printed, see below. Discharge Instructions from Dr. Bowers printed for you: 1. After evaluation, your case was discussed with Dr. Hernandez, our associate professor of radiology on-call tonight. 2. There is no concern for preeclampsia, high BP during and after , which can cause severe damage to your organs and even seizures. 3. Continue to take labetalol for high BP as prescribed. 4. When resting or sitting or sleeping, elevate both feet/ankles above your waist level. To help the extra fluid go back into your circulation so you can urinate out the extra fluid. This is extremely important. 5. Decrease sodium intake to improve the swelling and BP. 6. See your associate professor of radiology on 11/11/2024 for recheck and further care. Ask to review all test results and official radiology reports, to make sure you receive all necessary follow-ups and monitoring. 7. Seek immediate medical care with worsening or with any concerns. Jacob Bowers MD Related Data Home Medications ?Medication ?Instructions ?Recorded ?Confirmed vits no.126-ferrous fum 1 tab PO QDAY 08/25/24 11/05/24 28 mg iron-folic acid 800 mcg tablet (Classic ) cholecalciferol (vitamin D3) 1 tab PO QDAY 10/28/24 11/05/24 ferrous sulfate 325 mg (65 mg 325 mg PO QDAY 10/28/24 11/05/24 iron) tablet (FeroSul) Previous Rx's ?Medication ?Instructions ?Recorded ibuprofen 600 mg tablet 600 mg PO Q6H PRN pain #30 tabs 11/07/24 labetalol 200 mg tablet 200 mg PO BID #60 tabs 11/07/24 Allergies Allergy/AdvReac Type Severity Reaction Status Date / Time No Known Allergies Allergy Verified 11/09/24 23:01 Review of Systems Review of Systems Systems Reviewed: All systems reviewed, normal except as documented Past Medical History Past Medical History NEUROLOGIC: Negative Neurological Disorders or Seizures CARDIAC: Negative Cardiac Disorders or Congestive Heart Failure RESPIRATORY: Negative Chronic Obstructive Pulmonary Disease (COPD) GASTROINTESTINAL: Negative Gastrointestinal Disorders GENITOURINARY: Negative Genitourinary Disorders or Renal Disease REPRODUCTIVE: Positive Previous Pregnancies (SAB X2) MUSCULOSKELETAL: Positive Fractures (Elbow @ 9 yrs old); Negative Musculoskeletal Disorders ENDOCRINE: Negative Endocrine Disorders, Diabetes Mellitus Type 1 or Diabetes Mellitus Type 2 HEMATOLOGIC: Negative Blood Disorders or Anemia OTHER HISTORY: Negative Autoimmune Disease, Falls, Blood Transfusions, Anesthesia Reactions or Cancer Family History FAMILY HISTORY: Negative Family Psychiatric Problems, Family Respiratory Disorders, Family Cardiac Disorders, Family Gastrointestinal Problems, Family Cancer, Family Surgery or Family Anesthesia Reaction Surgical History SURGICAL: Negative Section Social History SMOKING STATUS: 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 SECOND HAND EXPOSURE: No SUBSTANCE USE: does not use ED Exam Narrative Physical exam: As noted in HPI. Course Quality Measures none Orders Category Date Time Status Saline [Insert IV] NOW Care 11/09/24 23:49 Completed Straight [In and Out Catheter] X1 Care 11/09/24 23:49 Completed XR chest 1V portable Stat Exams 11/09/24 23:50 Taken Amylase Stat Lab 11/09/24 00:08 Completed BNP [B-Type Natriuretic Peptide] Stat Lab 11/09/24 00:08 Completed Bilirubin,Direct Stat Lab 11/09/24 00:08 Completed CBC Stat Lab 11/09/24 00:08 Completed CMP [Comprehensive Metabolic Panel] Stat Lab 11/09/24 00:08 Completed D-Dimer Stat Lab 11/09/24 00:08 Completed Fibrinogen Stat Lab 11/09/24 00:08 Completed Free T4 (Free Thyroxine) Stat Lab 11/09/24 00:08 Completed LDH (Lactate Dehydrogenase) Stat Lab 11/09/24 00:08 Completed Lipase Stat Lab 11/09/24 00:08 Completed Magnesium Stat Lab 11/09/24 00:08 Completed PT [Prothrombin Time with INR] Stat Lab 11/09/24 00:08 Completed PTT [Partial Thromboplastin Time] Stat Lab 11/09/24 00:08 Completed TSH [Thyroid Stimulating Hormone] Stat Lab 11/09/24 00:08 Completed UA, C/S IF [Urinalysis, C/S if Indicated] Stat Lab 11/09/24 00:05 Completed Uric Acid Stat Lab 11/09/24 00:08 Completed Urine Culture Stat Lab 11/09/24 00:05 Received Labetalol IV [Trandate IV] Med 11/09/24 23:49 Discontinued 10 mg IVP X1 ONE Magnesium Sulfate 2 GM Ivpb [Magnesium Sulfate Ivpb] Med 11/09/24 23:49 Discontinued 2 gm in 50 ml IV X1 Vital Signs Vital signs: Vital Signs Temperature 98.9 F 11/09/24 23:22 Pulse Rate 97 11/09/24 23:22 Respiratory Rate 18 11/09/24 23:22 Blood Pressure 147/71 H 11/09/24 23:22 Pulse Oximetry (%) 99 11/09/24 23:22 Oxygen Delivery Method Room Air 11/09/24 23:22 Recheck / Abnormal Lab / Rx MDM Narrative MDM Narrative:: 29yo female with a history of gestational HTN, 72-96 hour presents to the ED for complaints of headache, high blood pressure, BLE swelling, and left-sided abdominal pain. Patient states her symptoms started after she was discharged from our facility. She denies any blurry vision, nausea, vomiting, or shortness of breath. She takes Labetalol 200 mg BID. OB is Ingris Vasquez. No previous abdominal surgeries. No other complaints reported. Patient data External records reviewed:: [facility] previous records (Per chart review, patient was admitted here on 11/05/24 for gestational hypertension.) Clinical information provided by:: patient Social determinants that could affect healthcare access:: none Patient has the following chronic illnesses:: none How is presenting disease/condition affected by chronic disease/condition?: no chronic disease Evaluation data The following diagnostics were reviewed and interpreted by me:: lab results and radiology exam(s) Lab and/or radiology exams considered but not ordered:: none Interpretation Summary: I reviewed all diagnostic test results. My interpretation of the chest x-ray is no acute findings, official radiology report is pending. Blood tests remarkable for WBC 12.5, Fibrinogen 612, D-Dimer 852, Magnesium 1.4, AST 58, ALT 62, Alkaline Phosphatase 135. UA remarkable for positive leukocyte esterase, 8 RBCs, 434 WBCs, and rare bacteria. Medications / Prescriptions Medications or Prescriptions considered but not ordered:: none Medication administrations:: Medication Administration History Discontinued Medications Magnesium Sulfate (Magnesium Sulfate Ivpb) 2 gm in 50 mls @ 25 mls/hr IV X1 ONE Stop: 11/10/24 01:48 Last Infusion: 11/10/24 02:31 Dose: Infused Documented By: Admin: 11/10/24 00:14 Dose: 25 mls/hr Documented By: NEMO Labetalol HCl (Labetalol Inj 5 Mg/Ml Vial 20 Ml) 10 mg IVP X1 ONE Stop: 11/09/24 23:50 Last Admin: 11/10/24 00:14 Dose: 10 mg Documented By: NEMO Labetalol, Magnesium Consultations Consultation(s) initiated? (list below): Yes Consultation #1 (Physician, Specialty, Details): I discussed the case with our PHYSICAL THERAPY PROFESSOR. About the presentation and exam and diagnostics and treatments here. And possible need of further care in the hospital. Recommended outpatient follow-up. Diagnosis Recheck Differential Diagnosis: other ( preeclampsia, hypertension) Most likely diagnosis given after review of the tests above:: hypertension Admission Indicated Admission indicated?: not indicated Explain why admission is indicated or not indicated:: I discussed the case with our PHYSICAL THERAPY PROFESSOR. About the presentation and exam and diagnostics and treatments here. And possible need of further care in the hospital. Recommended outpatient follow-up. Admission Request Was there a request for admission?: No Disposition Plan Disposition Plan: Discharge Discharge Attestation Discharge Attestation: The patient and all family members were given an opportunity to ask questions and understood the discharge instructions. Discharge instructions specifically effects, indications for sooner follow up or return to the emergency department, and the expected course of current diagnosis. Patient condition: Stable Discharge Plan Plan Patient Disposition: HOME (Self Care) Prescriptions/Referrals Prescriptions/Med Rec: No Action Classic 28 mg iron- 800 mcg tablet 1 tab PO QDAY labetalol 200 mg tablet 200 mg PO BID Qty: 60 1RF ibuprofen 600 mg tablet 600 mg PO Q6H PRN (Reason: pain) Qty: 30 1RF cholecalciferol (vitamin D3) [Baby Vitamin D3] 1 tab PO QDAY ferrous sulfate [FeroSul] 325 mg (65 mg iron) tablet 325 mg PO QDAY Problem List Clinical Impression: hypertension Patient/Caregiver Discharge Instructions Discharge Activity: activity as tolerated Education Materials: ED Hypertension, Established, ED High Blood Pressure ... Additional Instructions: Discharge Instructions from Dr. Bowers printed for you: 1. After evaluation, your case was discussed with Dr. Hernandez, our associate professor of radiology on-call tonsvetlana. 2. There is no concern for preeclampsia, high BP during and after , which can cause severe damage to your organs and even seizures. 3. Continue to take labetalol for high BP as prescribed. 4. When resting or sitting or sleeping, elevate both feet/ankles above your waist level. To help the extra fluid go back into your circulation so you can urinate out the extra fluid. This is extremely important. 5. Decrease sodium intake to improve the swelling and BP. 6. See your associate professor of radiology on 11/11/2024 for recheck and further care. Ask to review all test results and official radiology reports, to make sure you receive all necessary follow-ups and monitoring. 7. Seek immediate medical care with worsening or with any concerns. Print Language: Marshallese Stand Alone Forms: Alina Award Info., Patient Portal Info Letter
[2024-11-10 00:12] VITALS: BP 151/97; PULSE 98; RESP 16; TEMP 36.8; O2SAT 99
[2024-11-10 00:14] VITALS: BP 151/97; PULSE 98
[2024-11-10] MEDS: Magnesium Sulfate 2 GM Ivpb 2 GM/50 ML BAG IV (00:14)
[2024-11-10] MEDS: LABETALOL INJ 5 MG/ML VIAL 20 ML 10 MG IVP (00:14)
[2024-11-10 00:22] LABS: Collection Type, Urine Clean Catch
[2024-11-10 00:32] LABS: Amorphous Crystals,Urine Present (Absent); Bacteria,Urine Rare; Bilirubin,Urine Negative (Negative); Blood,Urine 3+ (Negative); Clarity,Urine Turbid (Clear/Hazy); Glucose, Urine Negative (Negative); Ketones,Urine Negative (Negative); Leukocyte Esterase,Urine Positive (Negative); Nitrite,Urine Negative (Negative); PH,Urine 6.5 (5.0-7.0); Protein,Urine Trace (Neg - Trace); RBC,Urine 8 /hpf (0-3); Specific Gravity,Urine 1.009 (1.001-1.035); Squamous Epithelial Cell,Urine 3 /hpf (0-5); Urobilinogen,Urine Negative mg/dL (0.0-1.0); WBC,Urine 434 /hpf (0-5)
[2024-11-10 00:39] LABS: Basophils # (Auto) 0.0 Thou/mm3 (0.0-0.2); Basophils % (Auto) 0 % (0-2.5); Eosinophils # (Auto) 0.2 Thou/mm3 (0.0-0.5); Eosinophils % (Auto) 2 % (0-10); Hematocrit 32.9 % (36.0-46.0); Hemoglobin 11.9 g/dL (12.0-16.0); Immature Granulocytes Auto 0.05 Thou/mm3 (0.00-0.00); Lymphocytes # (Auto) 1.9 Thou/mm3 (1.0-4.8); Lymphocytes % (Auto) 15 % (10-50); Mean Corpuscular HGB Conc 36.2 g/dl (31.0-37.0); Mean Corpuscular Hemoglobin 30.5 pg (25.0-35.0); Mean Corpuscular Volume 84 fL (80-100); Monocytes # (Auto) 0.9 Thou/mm3 (0.0-0.8); Monocytes % (Auto) 7 % (0-12); Neutrophils # (Auto) 9.4 Thou/mm3 (1.8-7.7); Neutrophils % (Auto) 75 % (37-80); Nucleated Red Blood Cell # 0.00 Thou/mm3 (0.00-0.00); Nucleated Red Blood Cell % 0 /100 WBC (0); Platelet Count 260 Thou/mm3 (140-440); RDW Standard Deviation 39.4 fL (36.4-46.3); Red Blood Count 3.90 Miln/mm3 (4.00-5.20); White Blood Count 12.5 Thou/mm3 (3.6-11.0)
[2024-11-10 00:48] LABS: INR 1.0 (0.9-1.3); Partial Thromboplastin Time 30.6 Seconds (22.0-36.0); Prothrombin Time 10.6 Seconds (9.0-12.2)
[2024-11-10 00:51] LABS: B-Type Natriuretic Peptide 65 pg/mL (0-100)
[2024-11-10 00:55] LABS: Fibrinogen 612 mg/dL (175-375)
[2024-11-10 00:56] LABS: Color,Urine Amber (Lt Yel-Yel); Culture Indicated,Urine Yes
[2024-11-10 00:58] LABS: Alanine Aminotransferase 62 U/L (10-49); Albumin, Serum 4.0 gm/dL (3.5-5.0); Albumin/Globulin Ratio 1.5 (1.2-2.2); Alkaline Phosphatase 135 U/L (46-116); Amylase 56 U/L (30-118); Anion Gap 13 (7-16); Aspartate Amino Transferase 58 U/L (0-34); BUN/Creatinine Ratio 10 Ratio (12-20); Bilirubin,Direct < 0.1 mg/dL (0.0-0.3); Bilirubin,Total 0.4 mg/dL (0.3-1.2); Blood Urea Nitrogen 6 mg/dL (9-23); Calcium 9.0 mg/dL (8.3-10.6); Calcium (Corrected) 9.0 mg/dL (8.5-10.1); Carbon Dioxide 21.3 mMol/L (20.0-31.0); Chloride 108 mMol/L (98-107); Creatinine (Component) 0.6 mg/dL (0.6-1.3); Estimated Creatinine Clearance 149.6 mL/min (>60); Free T4 (Free Thyroxine) 0.93 ng/dL (0.89-1.76); Globulin 2.7 gm/dL (2.3-3.5); Glucose 100 mg/dL (74-106); LDH (Lactate Dehydrogenase) 318 U/L (120-246); Lipase 29 U/L (12-53); Magnesium 1.4 mg/dL (1.6-2.6); Osmolality,Calculated 280 (275-295); Potassium 3.8 mMol/L (3.4-5.1); Sodium 142 mMol/L (136-145); Thyroid Stimulating Hormone 1.40 uIU/mL (0.55-4.78); Total Protein 6.7 gm/dL (5.7-8.2); Uric Acid 5.8 mg/dL (3.1-7.8); eGFR > 60 See Note
[2024-11-10 01:13] LABS: D-Dimer 852 ng/mL (<600)
[2024-11-10 01:17] VITALS: BP 134/86; PULSE 90; RESP 18; O2SAT 98
[2024-11-10 01:55] VITALS: BP 131/84; PULSE 87; RESP 18; TEMP 37.1; O2SAT 98
== END 2024-11-10 02:07 | disposition home or self-care (01) ==
LOC: SERX 11-10 02:40
PROVIDERS: Emergency Provider Emergency Medicine
DX: O16.5 Unspecified maternal hypertension, complicating the puerperium (principal)
CPT/HCPCS: 36415; 71045; 80053; 81001; 82150; 82248; 83615; 83690; 83735; 83880; 84439; 84443; 84550; 85025; 85379; 85384; 85610; 85730; 87086; 87186; 96365; 96366; 96375; J3475; J3490; J1920

== ENCOUNTER 2024-11-16 11:28 | Outpatient (AMB) | payer MEDICAID, SELFPAY ==
--- NOTE | 2024-11-16 11:38 | AMB.OBPP ---
Vital Signs 11/16/24 11:39 Weight 87.997 kg Weight Measurement Method Standing Scale BP 133/87 H Blood Pressure Source Automatic Cuff Blood Pressure Location Right Upper Arm Position Sitting Respiration 17 Pulse 75 Pulse Source Monitor Temp 97.6 F Temp Source Temporal Artery Scan Pulse Oximetry (%) 98 Oxygen Delivery Method Room Air Allergies/Home Meds Allergies & Medications Allergies No Known Allergies Allergy (Verified 11/16/24 11:40) Intake Visit Data Collection New Patient or Established: Established Patient (seen at [facility] within 3 years) Reason for Visit:: Consent obtained for Telemed Visit: No Seen by Clinical Staff ONLY (RN/MA): No Ship Engines Operating Engineer Required: No Do You Feel Safe at Home: Yes Authorities Contacted: N/A PCP or OBGYN visit in last 3 months: No Hx Now: No Are you currently on any form of Control: No Pain Present Currently: No Pain Scale Used: Long-Villanueva/Numerical Pain scale:: 0 Smoking Status Smoking Status: 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 FIELD COORDINATOR: Past Medical History Past Medical History: No Hx Neurological Disorders, No Hx Cardiac Disorders, No Hx Cancer, No Hx Blood Disorders, No Hx Anemia, No Hx Gastrointestinal Disorders, No Hx Renal Disease, No Hx Diabetes Mellitus Type 1 and No Hx Diabetes Mellitus Type 2 Questionnaires Covid-19 Vaccine Questionnaire Has patient been vacinated for Covid-19 Have you been vacinated for Covid-19: Yes Social History Living Situation History Lives With: Spouse Housing: House Tobacco History Smoking Status: 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 Second Hand Smoke Exposure: No Alcohol History Alcohol Intake: Never Domestic Abuse History Do You Feel Safe at Home: Yes EPDS - PP Depression Screening [place] Pospartum Depression Screen I have been able to laugh and see the funny side of things: (0) As much as I always could I have looked forward with enjoyment to things: (0) As much as I ever did I have blamed myself unnecessarily when things went wrong: (0) No, never I have been anxious or worried for no good reason: (0) No, not at all I have felt scared or panicky for no very good reason: (0) No, not at all Things have been getting on top of me: (0) No, I have been coping as well as ever I have been so unhappy that I have had difficulty sleeping: (0) No, not at all I have felt sad or miserable: (0) No, not at all I have been so unhappy that I have been crying: (0) No, never The thought of harming myself has occurred to me: (0) Never Care OB Visit Log OB Flowsheet Initial Weight: Not Recorded Date <del>?</del> EGA Weight BP Alb Glu CTX Pres Fundal ht FHR Mov Dilation Station Effacement Hx Notes Visit Note 08/25/24 <del>?</del> 29w 2d 90.378 kg 126/80 absent 29 160 active 28-year-old 3 para 0 for first visit at [facility] OB clinic. Patient was a transfer from [facility] no records. She states that her due date is November 08, 2024. Reports good movement. She reports that this has been complicated. And her labs were done and she last did her 1 hour Glucola that was normal per patient. She is taking vitamins denies any signs of labor. And reports good movement. Plan today is to schedule an MF anatomy scan [facility]. Continue prenatals and vitamin D and iron and discussed labor precautions and diet and weight with patient. Return in 3 weeks OB check 28-year-old 3 para 0 for first visit at [facility] OB clinic. Patient was a transfer from [facility] no records. She states that her due date is November 08, 2024. Reports good movement. She reports that this has been uncomplicated. And her labs were done and she last did her 1 hour Glucola that was normal per patient. She is taking vitamins denies any signs of labor. And reports good movement. Plan today is to schedule an MFM anatomy scan [facility]. Continue prenatals and vitamin D and iron and discussed labor precautions and diet and weight with patient. Return in 3 weeks OB check 28-year-old 3 para 0 for first visit at [facility] OB clinic. Patient was a transfer from [facility] no records. She states that her due date is November 08, 2024. Reports good movement. She reports that this has been uncomplicated. And her labs were done and she last did her 1 hour Glucola that was normal per patient. She is taking vitamins denies any signs of labor. And reports good movement. Plan today is to schedule an MFM anatomy scan [facility]. Continue prenatals and vitamin D and iron and discussed labor precautions and diet and weight with patient. Return in 3 weeks OB check. decline TDAP 09/15/24 <del>?</del> 32w 2d 92.646 kg 127/81 absent cephalic 33 135 active fetus active. no PTL complaints. no Leaking,or bleeding. fetus active. MFM pending discuss FKC BID, ptl precaution, increase fluid. f/u on mfm appointment. continue PNV, discuss diet and weight. rtc 2 week OBC 09/29/24 <del>?</del> 34w 2d 92.533 kg 129/84 absent cephalic 34 134 active fetus active, denies VB,LOF and PTL complaints, fetus active per pt PTL precaution reviewed, discuss FKC. continue PNV, hydrate, f/u mfm 10/13/24 <del>?</del> 36w 2d 96.275 kg 119/81 occasional cephalic 35 145 active fetus active, pressure and cramps, no leaking or bleeding GBS today, discuss labor precaution, fkc bid, discuss ER precaution,and PIH precaution. hydrate, rtc 1 week OBC 10/20/24 <del>?</del> 37w 2d 95.368 kg 123/85 occasional cephalic 40 140 active Reports period-like cramps (Jethro Weston), no leaking or bleeding, good FM. Recently evaluated at hospital and discharged. vitamins continued Return visit with Dr. Ley next week, Ingris VANEGAS on November 03. Encourage daily 15?20 min walks, use exercise ball, monitor for labor. Await spontaneous labor; induce after 40 weeks if needed. 10/26/24 <del>?</del> 38w 1d 96.615 kg 134/87 absent cephalic 40 140 active Hortencia Weaver, at 38+1 wks for routine visit, no ctx, LOF, VB, good FM, denies BRICEÑO, VC, epigastric pain, continuing walking and exercise ball per recommendations, FHT 159-160 bpm, continue current care with next appointment with Ingris Friday. 11/02/24 <del>?</del> 39w 1d 98.543 kg 130/85 occasional cephalic 40 146 active 0 -4 25 sve: closed/thick/high. mid/soft, denies, bkeeding,leaking.no VXC, no epigastric pain or BRICEÑO, increased cramps, fetus active discuss PIH complaints, comfort measure for early labor. fkc bid.discuss danger s/s, rtc 1 week KAHTARINA Calculator Estimated Delivery Date Method Current WG Current Estimate 11/08/24 LMP (Certain) 41w 1d Other Estimates 11/03/24 Ultrasound #1 41w 6d Notes Visit Date: 09/29/24 Last Updated by: Ingris Chance CNM 1 hr gtt wnl Visit Date: 09/15/24 Last Updated by: Ingris Chance CNM 28 yo , lmp 02/01/25. edc 11/08/24. transfer of car from Dr haynes. gtt: 115, hbsag:neg, HIV-,HC-, A1c: 5.0, gc/ct-,A+,abs- HPI Interval History: 29-year-old G3, P1 for 1 week visit. Patient was in induction for elevated blood pressures and gestational hypertension. She had vaginal November 06, 2024. A baby girl weighing 6 pounds 15 ounces. Patient is breast and bottlefeeding. She is happy denies any depression. The sibling is adjusting. Perineum was intact however patient sustained 2 small vaginal lacerations that were repaired. Patient has a good support system and the father and family are involved. She is unsure what she wants to use for control. Patient had an ER visit for bilateral breast pain and redness week ago. Patient was treated with antibiotics for mastitis. Patient was sent home on labetalol 200 twice daily. However she has had poor compliance with taking labetalol and she did not take it yesterday. Denies headache. Denies blurred vision. Denies epigastric pain. Patient was taking ibuprofen for for discomfort. Was or delivery considered high risk: Yes Delivery type: vaginal Was labor induced: yes and medically indicated (gestational htn) Gestational age at delivery (weeks): 39 Delivery date: 11/06/24 Delivering provider: ravi chance Delivery complications: No Is patient : Yes Is patient sexually active: No Contraception planned: unsure Review of Systems Review of Systems ROS limited to current FIELD COORDINATOR complaints: Yes Exam Narrative Physical exam: euthyroid, both breast soft, no redness, no evidence of mastitis, abdomen soft, non tender, no mass, uterus 3 below umb, negative homans, 2+ dttr, mild edema General Limitations: no limitations General Appearance: alert, in no apparent distress, comfortable, cooperative, healthy appearing, well developed and well groomed Head Head exam: atraumatic, normocephalic and normal inspection Chest Chest inspection: Present normal inspection and symmetric chest wall rise Resp Respiratory exam: Present normal lung sounds bilaterally Card Cardiovascular exam: Present regular rate, normal rhythm and normal heart sounds Abdominal Abdominal exam: Present soft and normal bowel sounds Psych Psychiatric exam: Present normal affect and normal mood Skin Skin exam: Present warm, dry, intact and normal color Results Objective Laboratory: urine: negative protein, no Nitrite Office Procedures OB Clinic LOC & Office Proc's Nursing/Assessment Patient Status: Established Patient OB Clinic Nursing Assessment: Medication Reconciliation, Update PMH in EMR and Vital Signs OB Clinic Coordination of Care: Complex Care and Chronic Disease 1-5, Complex Care/Chronic Disease 5 or more, Consent,records obtained, informed consent, Education Simp Pt/Fam and 4+ Authorizations needed Miscellaneous Interventions: Blood/Urine Collection Established Patient Charge Established Patient Point Assignment: 165 Post Follow-up Visit Post Follow up Visit: Yes Assessment & Plan Diagnosis / Problem List (1) 2 weeks follow-up: Status: Acute (2) hypertension: Status: Acute Plan Continue labetalol 200 twice daily. I discussed and advised consistency with her meds. Okay to switch to Tylenol as needed for discomfort. Discussed continued care of her vaginal lacerations and no sex. Reviewed contraception with patient and she declined at this time. I discussed latching and breast-feeding positions. Advised patient to hand express milk prior to trying to latch the baby. Discussed ER precautions. And I discussed PIH signs and symptoms. Patient will return in 2 weeks for 3-week Care Reviewed delivery summary and any complications: Yes Uterus involuted to: 3 below Perineal / incision healing noted: Yes Screened for depression: Yes Depression counseling provided: No Discussed family planning & contraception: Yes Contraception planned: unsure Counseling on safe resumption of sexual activity: Yes Counseling on gradual excercise: Yes Discussed and concerns (describe), provided support: Yes Referred to insurance claims specialist: No Counseled on good nutrition, hydration, and self care: Yes Reviewed vaccine status: No Chronic & current problems reconciled on problem list: Yes care discussed; questions answered: feeding Follow up: routine/prn Additional counseling & anticipatory guidance provided: Advised patient to take labetalol consistently twice a day. Continue labetalol 200 twice daily. Increase fluids. Increase rest. No sex. Discussed comfort measures for her vaginal lacerations. And I reviewed PIH signs and symptoms and ER precautions with patient.
[2024-11-16 11:39] VITALS: BP 133/87; PULSE 75; RESP 17; TEMP 36.4; O2SAT 98
== END 2024-11-16 11:54 | disposition home or self-care (01) ==
LOC: HODSOBC 11:28
PROVIDERS: Supervising Provider Advanced Practice Midwife; Visit Provider Advanced Practice Midwife
DX: Z39.2 Encounter for routine postpartum follow-up (principal); Z39.1 Encounter for care and examination of lactating mother; O13.5 Gestational [pregnancy-induced] hypertension without significant proteinuria, complicating the puerperium

== ENCOUNTER 2024-12-14 10:27 | Outpatient (AMB) | payer MEDICAID, SELFPAY ==
[2024-12-14 10:43] VITALS: BP 117/76; PULSE 72; RESP 15; TEMP 36.3; O2SAT 97; BMI 34.2
--- NOTE | 2024-12-14 10:43 | AMBOBPPN_ITS ---
Vital Signs 12/14/24 10:43 Height 1.57 m Height Method Stated Weight 84.935 kg Weight Measurement Method Standing Scale BMI 34.2 BP 117/76 Blood Pressure Source Automatic Cuff Blood Pressure Location Left Upper Arm Position Sitting Respiration 15 Pulse 72 Pulse Source Monitor Temp 97.3 F Temp Source Oral Pulse Oximetry (%) 97 Oxygen Delivery Method Room Air Allergies/Home Meds Allergies & Medications Allergies No Known Allergies Allergy (Verified 12/14/24 10:44) Medication Reconciliation vits no.126-ferrous fum 28 mg iron-folic acid 800 mcg tablet (Classic ) 1 tab PO QDAY 08/25/24 [History Confirmed 12/14/24] cholecalciferol (vitamin D3) 1 tab PO QDAY 10/28/24 [History Confirmed 12/14/24] ferrous sulfate 325 mg (65 mg iron) tablet (FeroSul) 325 mg PO QDAY 10/28/24 [History Confirmed 12/14/24] ibuprofen 600 mg tablet 600 mg PO Q6H PRN pain #30 tabs 11/07/24 [Rx Confirmed 12/14/24] labetalol 200 mg tablet 200 mg PO BID #60 tabs 11/07/24 [Rx Confirmed 12/14/24] norethindrone (contraceptive) 0.35 mg tablet (Kenzie) 0.35 mg PO QDAY #84 tabs 12/14/24 [Rx] Intake Visit Data Collection New Patient or Established: Established Patient (seen at [facility] within 3 years) Reason for Visit:: Seen by Clinical Staff ONLY (RN/MA): No Director Of Community Life Required: No Do You Feel Safe at Home: Yes Authorities Contacted: N/A PCP or OBGYN visit in last 3 months: Yes Hx Now: No Are you currently on any form of Control: No Pain Present Currently: No Pain Scale Used: Long-Villanueva/Numerical Pain scale:: 0 Smoking Status Smoking Status: 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 [employer]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: Past Medical History Past Medical History: No Hx Neurological Disorders, No Hx Cardiac Disorders, No Hx Cancer, No Hx Blood Disorders, No Hx Anemia, No Hx Gastrointestinal Disorders, No Hx Renal Disease, No Hx Diabetes Mellitus Type 1 and No Hx Diabetes Mellitus Type 2 Questionnaires Covid-19 Vaccine Questionnaire Has patient been vacinated for Covid-19 Have you been vacinated for Covid-19: No Social History Living Situation History Lives With: Spouse Housing: House Tobacco History Smoking Status: 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 Second Hand Smoke Exposure: No Alcohol History Alcohol Intake: Never Domestic Abuse History Do You Feel Safe at Home: Yes EPDS - PP Depression Screening [place] Pospartum Depression Screen I have been able to laugh and see the funny side of things: (0) As much as I always could I have looked forward with enjoyment to things: (0) As much as I ever did I have blamed myself unnecessarily when things went wrong: (0) No, never I have been anxious or worried for no good reason: (0) No, not at all I have felt scared or panicky for no very good reason: (0) No, not at all Things have been getting on top of me: (0) No, I have been coping as well as ever I have been so unhappy that I have had difficulty sleeping: (0) No, not at all I have felt sad or miserable: (0) No, not at all I have been so unhappy that I have been crying: (0) No, never The thought of harming myself has occurred to me: (0) Never EPDS completed yes Care OB Visit Log OB Flowsheet Initial Weight: Not Recorded Date -?-?-?-?-?-?-?-?-?-?-?-?- EGA Weight BP Alb Glu CTX Pres Fundal ht FHR Mov Dilation Station Effacement Hx Notes Visit Note 08/25/24 -?-?-?-?-?-?-?-?-?-?-?-?- 29w 2d 90.378 kg 126/80 absent 29 160 ac tive 28-year-old 3 para 0 for first visit at [facility] OB clinic. Patient was a transfer from [facility] no records. She states that her due date is November 08, 2024. Reports good movement. She reports that this has been complicated. And her labs were done and she last did her 1 hour Glucola that was normal per patient. She is taking vitamins denies any signs of labor. And reports good movement. Plan today is to schedule an M anatomy scan [facility]. Continue prenatals and vitamin D and iron and discussed labor precautions and diet and weight with patient. Return in 3 weeks OB check 28-year-old 3 para 0 for first visit at [facility] OB clinic. Patient was a transfer from [facility] no records. She states that her due date is November 08, 2024. Reports good movement. She reports that this has been uncomplicated. And her labs were done and she last did her 1 hour Glucola that was normal per patient. She is taking vitamins denies any signs of labor. And reports good movement. Plan today is to schedule an MFM anatomy scan [facility]. Continue prenatals and vitamin D and iron and discussed labor precautions and diet and weight with patient. Return in 3 weeks OB check 28-year-old 3 para 0 for first visit at [facility] OB clinic. Patient was a transfer from [facility] no records. She states that her due date is November 08, 2024. Reports good movement. She reports that this has been uncomplicated. And her labs were done and she last did her 1 hour Glucola that was normal per patient. She is taking vitamins denies any signs of labor. And reports good movement. Plan today is to schedule an MFM anatomy scan [facility]. Continue prenatals and vitamin D and iron and discussed labor precautions and diet and weight with patient. Return in 3 weeks OB check. decline TDAP 09/15/24 -?-?-?-?-?-?-?-?-?-?-?-?- 32w 2d 92.646 kg 127/81 absent cephalic 33 135 active fetus active. no PTL complaints. no Leaking,or bleeding. fetus active. MFM pending discuss FKC BID, ptl precaution, increase fluid. f/u on mfm appointment. continue PNV, discuss diet and weight. rtc 2 week OBC 09/29/24 -?-?-?-?-?-?-?-?-?-?-?-?- 34w 2d 92.533 kg 129/84 absent cephalic 34 134 active fetus active, denies VB,LOF and PTL complaints, fetus active per pt PTL precaution reviewed, discuss FKC. continue PNV, hydrate, f/u mfm 10/06//10/13/24 -?-?-?-?-?-?-?-?-?-?-?-?- 36w 2d 96.275 kg 119/81 occasional cephalic 35 145 active fetus active, pressure and cramps, no leaking or bleeding GBS today, discuss labor precaution, fkc bid, discuss ER precaution,and PIH precaution. hydrate, rtc 1 week OBC 10/20/24 -?-?-?-?-?-?-?-?-?-?-?-?- 37w 2d 95.368 kg 123/85 occasional cephalic 40 140 active Reports period- like cramps (Sequoyah Weston), no leaking or bleeding, good FM. Recently evaluated at hospital and discharged. vitamins continued Return visit with Dr. Ley next week, Ingris VANEGAS on November 03. Encourage daily 15?20 min walks, use exercise ball, monitor for labor. Await spontaneous labor; induce after 40 weeks if needed. 10/26/24 -?-?-?-?-?-?-?-?-?-?-?-?- 38w 1d 96.615 kg 134/87 absent cephalic 40 140 active Hortencia Weaver, at 38+1 wks for routine visit, no ctx, LOF, VB, good FM, denies BRICEÑO, VC, epigastric pain, continuing walking and exercise ball per recommendations, FHT 159-160 bpm, continue current care with next appointment with Ingris Friday. 11/02/24 -?-?-?-?-?-?-?-?-?-?-?-?- 39w 1d 98.543 kg 130/85 occasional cephalic 40 146 active 0 -4 25 sve: c losed/thick/high. mid/soft, denies, bkeeding,leaking.no VXC, no epigastric pain or BRICEÑO, increased cramps, fetus active discuss PIH complaints, comfort measure for early labor. fkc bid.discuss danger s/s, rtc 1 week KATHARINA Calculator Estimated Delivery Date Method Current WG Current Estimate 11/08/24 LMP (Certain) 45w 1d Other Estimates 11/03/24 Ultrasound #1 45w 6d Notes Visit Date: 09/29/24 Last Updated by: Ingris Chance CNM 1 hr gtt wnl Visit Date: 09/15/24 Last Updated by: Ingris Chance CNM 28 yo , lmp 02/01/25. edc 11/08/24. transfer of car from Dr haynes. gtt: 115, hbsag:neg, HIV-,HC-, A1c: 5.0, gc/ct-,A+,abs- HPI Interval History: 29 yo for 5 week pp. 11/06/24, baby girl. 6-14. pumping. happy, no depression. good support at home. Father is involved and participates in baby's care. Patient has not resumed sexual activity. Patient was on this for hypertension. She is not taking any meds at this time. 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 Lungs clear no wheezes. Abdomen is soft nontender. Uterus well involuted. Perineum is intact no lacerations. No swelling. Small lochia. Negative Homans' sign. 2+ DTRs. No edema no swelling. Breasts are soft General Limitations: no limitations General Appearance: alert, in no apparent distress, comfortable, cooperative, healthy appearing, well developed and well groomed Head Head exam: atraumatic, normocephalic and normal inspection Chest Chest inspection: Present normal inspection and symmetric chest wall rise Resp Respiratory exam: Present normal lung sounds bilaterally Card Cardiovascular exam: Present regular rate, normal rhythm and normal heart sounds Abdominal Abdominal exam: Present soft and normal bowel sounds External exam: Present normal external exam Speculum exam: Present normal speculum exam Bimanual exam: Present normal bimanual exam Psych Psychiatric exam: Present normal affect and normal mood Office Procedures OB Clinic LOC & Office Proc's Nursing/Assessment Patient Status: Established Patient OB Clinic Nursing Assessment: Medication Reconciliation, Update PMH in EMR and Vital Signs OB Clinic Coordination of Care: Complex Care and Chronic Disease 1-5, Consent,records obtained, informed consent, Education Simp Pt/Fam, 1 Ins Authorization, Lab and Imaging orders, Results/Orders obtained and Staff clarify orders Established Patient Charge Established Patient Point Assignment: 120 Established Patient Point Charge: EP Level 4 (120-155) Assessment & Plan Diagnosis / Problem List (1) Routine Follow-Up: Plan: Okay to resume sex a day. Patient given prescription for the minipill/Kenzie. Reviewed method and compliance. Condoms for 2 weeks. Continue vitamins while pumping. Advised patient to call to change to combined pill once she stops breast-feeding. Increase fluids. Increase feeds to every 2-3 hours. Encourage patient to start exercise. And follow-up when she needs to change control (2) 6 weeks follow-up: Status: Acute (3) Surveillance of oral contraception performed: Status: Acute Care Reviewed delivery summary and any complications: Yes Uterus involuted to: 3 below Perineal / incision healing noted: Yes Screened for depression: Yes Depression counseling provided: No Discussed family planning & contraception: Yes Contraception planned: minipill Counseling on safe resumption of sexual activity: Yes Counseling on gradual excercise: Yes Discussed and concerns (describe), provided support: Yes Referred to infantry operations specialist: Yes Counseled on good nutrition, hydration, and self care: Yes Chronic & current problems reconciled on problem list: Yes care discussed; questions answered: feeding Follow up: routine/prn Additional counseling & anticipatory guidance provided: Kenzie x 6 cycles. Condoms for 2 weeks. Reviewed method and side effects. Return when she stops breast-feeding. Increase fluids. Patient will return for her next Pap. (FP) Tobacco Smoking Status: 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
== END 2024-12-14 11:37 | disposition home or self-care (01) ==
LOC: HODSOBC 10:27
PROVIDERS: Supervising Provider Advanced Practice Midwife; Visit Provider Advanced Practice Midwife
DX: Z39.2 Encounter for routine postpartum follow-up (principal); Z39.1 Encounter for care and examination of lactating mother
CPT/HCPCS: 99214; G0463